=== PATIENT | female | born 1930 | race Caucasian/White ===

== ENCOUNTER 2016-12-17 12:44 | Inpatient (IN) ==
[2016-12-17] MEDS ORDERED: ONDANSETRON 4 MG/2 ML VIAL IV ONE ×2 (12:51→18:25)
[2016-12-17] MEDS: HYDROmorphone 2 MG/ML SYRINGE IV PRN ×2 (13:02→13:14)
--- NOTE | 2016-12-17 13:14 | Emergency Department Note ---
Lower Extremity Injury HPI - General Source: patient, family Mode of arrival: wheelchair Limitations: no limitations <Dora Puentes - Last Filed: 12/17/16 19:32> - General Source: patient Mode of arrival: ambulatory Limitations: no limitations <Jamin Novoa - Last Filed: 12/18/16 08:04> - General Chief Complaint: Extremity Injury, Lower Stated Complaint: Fall on right hip Time Seen by Provider: 12/17/16 12:58 - History of Present Illness HPI Narrative: 86-year-old female presents with fall onto the right hip. She was going downstairs at around 1030 this morning and missed the last step and fell onto her right hip. She has a lot of pain in the groin and muscles. She was unable to walk on it. Her main complaint is a muscle spasm and that comes and goes. She states her pain is 10 out of 10 when the spasms come. She has never had a fracture before. She denies hitting her head or shortness of breath. She has hypertension and a history of bone marrow cancer that is in remission. She takes 1 aspirin 325 daily. She denies any other complaints. She denies shortness of breath or chest pain. Known heart murmur since she was young ( Dora Puentes) - Related Data Home Medications Medication Instructions Recorded Confirmed aspirin 325 mg tablet 325 mg PO QDAY tab 02/28/15 12/17/16 hydroxyurea 500 mg capsule 500 mg PO QDAY cap 02/28/15 12/17/16 Previous Rx's Medication Instructions Recorded amlodipine 10 mg tablet 10 mg PO QDAY #90 tab 10/27/16 indapamide 2.5 mg tablet 2.5 mg PO QAM #90 tab 10/27/16 lisinopril 10 mg tablet 10 mg PO QDAY #90 tab 10/27/16 pravastatin 80 mg tablet 80 mg PO QHS #90 tab 10/27/16 Allergies Allergy/AdvReac Type Severity Reaction Status Date / Time No Known Drug Allergies Allergy Verified 10/27/16 10:47 Review of Systems All systems ED: reviewed and negative except as stated. <Dora Puentes - Last Filed: 12/17/16 19:32> Past Medical History - Past Medical History Medical history: Reports: cancer (bone marrow), coronary artery disease, hypertension Surgical history ED: Reports: angioplasty/stent [facility] history: Reports: non-contributory Family history: Reports: non-contributory - Social History smoking status: Former smoker <Dora Puentes - Last Filed: 12/17/16 19:32> - Past Medical History [facility] [place] Narrative: Medical History (Last Updated 11/05/16 @ 14:28 by [employer]) Chronic kidney disease, stage III (moderate) (Chronic) Abnormal finding in urine (Chronic) Polycythemia vera (Chronic) Hyperlipidemia (Chronic) Hypertension, essential (Chronic) Hyperkalemia (Resolved) Past Surgical History (Last Updated 11/05/16 @ 14:28 by [employer] [facility]) History of intravascular stent placement (Chronic) History of intravascular stent placement (Chronic) Family History Mother Arthritis Essential hypertension (Jamin Novoa) Physical Exam - General Limitations: no limitations General appearance: alert, in no apparent distress - Head Head exam: atraumatic, normal inspection - Eye Eye exam: Present: normal appearance, PERRL, EOMI. Absent: conjunctival injection - Neck Neck exam: Present: normal inspection, full ROM. Absent: tenderness, lymphadenopathy - Chest Chest inspection: Present: normal inspection, symmetric chest wall rise - Respiratory Respiratory exam: Present: normal lung sounds bilaterally - Cardiovascular Cardiovascular exam: Present: regular rate, systolic murmur - Abdominal Exam Abdominal exam: Present: soft, normal bowel sounds. Absent: tenderness - Expanded Lower Extremity Exam Hip/Pelvis exam: Present: tenderness (medial hip, groin), swelling (medial), external rotation, shortening, pelvis stable. Absent: full ROM, abrasion, laceration, ecchymosis, deformity, dislocation, erythema Knee exam: Present: normal inspection, full ROM. Absent: tenderness Lower leg exam: Present: normal inspection, full ROM. Absent: tenderness Ankle exam: Present: normal inspection, full ROM. Absent: tenderness Foot/toe exam: Present: normal inspection, full ROM. Absent: tenderness Neurovascular/Tendon exam: Present: normal capillary refill. Absent: pulse deficit - Neurological Exam Neurological exam: Present: alert, oriented X3, CN II-XII intact - Psychiatric Psychiatric exam: Present: normal affect, normal mood - Skin Skin exam: Present: warm, dry, intact <Dora Puentes - Last Filed: 12/17/16 19:32> - General Limitations: no limitations <Jamin Novoa - Last Filed: 12/18/16 08:04> Course <Dora Puentes - Last Filed: 12/17/16 19:32> <Jamin Novoa - Last Filed: 12/18/16 08:04> Course Narrative: She was taken to surgery by Dr. Calvert (Dora Puentes) Vital Signs Temperature 97.7 F 12/17/16 12:46 Pulse Rate 53 L 12/17/16 12:46 Respiratory Rate 20 12/17/16 12:46 Blood Pressure 162/76 12/17/16 12:46 Pulse Oximetry (%) 97 12/17/16 12:46 Temperature 98.6 F 12/18/16 06:37 Pulse Rate 56 L 12/18/16 06:37 Respiratory Rate 18 12/18/16 06:37 Blood Pressure 145/63 12/18/16 06:37 Pulse Oximetry (%) 94 12/18/16 07:27 Extremity Injury, Lower - Lab Data Result diagrams: 12/17/16 13:56 12/17/16 13:56 - Radiology Data Radiology results reviewed: Yes I reviewed the patient's radiology results. <Dora Puentes - Last Filed: 12/17/16 19:32> - Lab Data Result diagrams: 12/17/16 13:56 12/17/16 13:56 <Jamin Novoa - Last Filed: 12/18/16 08:04> - [facility] Narrative Medical decision making narrative: I have reviewed this case with the mid-level and agree that the patient has an intertrochanteric hip fracture. She has no other injuries and will be admitted to the hospital for surgery with Dr. Calvert. (Jamin Novoa) - Lab Data Lab Results 12/17/16 12/17/16 12/17/16 Range/Units 13:56 13:56 13:56 WBC 17.1 H (4.5-11.0) K/mcL RBC 3.88 L (4.00-5.20) M/mcL Hgb 14.4 (12.0-15.0) g/dL Hct 43.1 (36.0-48.0) % MCV 111.3 H (80.0-100.0) fL MCH 37.1 H (26.0-34.0) pg MCHC 33.4 (31.0-36.0) g/dL RDW 15.4 H (11.5-14.5) % Plt Count 559 H (140-440) K/mcL MPV 8.5 (7.4-10.4) fL Total Counted 100 Seg Neutrophils % 94 H (38-78) % Band Neutrophils % Not Reportable Monocytes % (Manual) 6 (1-12) % Platelet Estimate Increased (NORMAL) RBC Morphology Abnorm A (NORMAL) Macrocytosis 3+ A (NONE SEEN) PT 13.8 (11.9-14.5) sec INR 1.0 (0.9-1.1) VBG Lactic Acid (0.5-2.2) mmol/L Sodium 138 (133-145) mmol/L Potassium 3.9 (3.3-5.1) mmol/L Chloride 99 (96-108) mmol/L Carbon Dioxide 24 (22-30) mmol/L Anion Gap 15.0 (8-16) BUN 25 H (8-23) mg/dl Creatinine 1.0 (0.6-1.1) mg/dl GFR Calculation 52 Glucose 140 H (70-105) mg/dL Calcium 9.4 (8.6-10.4) mg/dl Total Bilirubin 0.8 (0.0-1.0) mg/dL AST 18 (0-37) U/l ALT 12 (0-40) U/l Alkaline Phosphatase 77 (39-117) U/L Total Protein 7.5 (5.9-8.4) gm/dL Albumin 4.3 (3.2-5.2) gm/dL Globulin 3.2 (2.2-3.7) gm/dL Albumin/Globulin Ratio 1.3 (1.0-2.3) Urine Color Urine Appearance Urine pH (5.0-9.0) Ur Specific Emily (1.000-1.035) Urine Protein (NEG) mg/dL Urine Glucose (UA) (NEG) mg/dL Urine Ketones (NEG) mg/dL Urine Occult Blood (<0.03) mg/dL Urine Nitrate (NEG) Urine Bilirubin (NEG) mg/dL Urine Urobilinogen (NEG) mg/dL Ur Leukocyte Esterase (NEG) /uL Urine RBC (0-1) /hpf Urine WBC (0-4) /hpf Ur Squamous Epith Cells (0-4) /hpf Amorphous Crystals (0) /hpf Urine Bacteria (0) /hpf Hyaline Casts (0-2) /lpf Urine Mucus (0) /hpf Ur Culture Indicated? 12/17/16 12/17/16 Range/Units 14:53 15:07 WBC (4.5-11.0) K/mcL RBC (4.00-5.20) M/mcL Hgb (12.0-15.0) g/dL Hct (36.0-48.0) % MCV (80.0-100.0) fL MCH (26.0-34.0) pg MCHC (31.0-36.0) g/dL RDW (11.5-14.5) % Plt Count (140-440) K/mcL MPV (7.4-10.4) fL Total Counted Seg Neutrophils % (38-78) % Band Neutrophils % Monocytes % (Manual) (1-12) % Platelet Estimate (NORMAL) RBC Morphology (NORMAL) Macrocytosis (NONE SEEN) PT (11.9-14.5) sec INR (0.9-1.1) VBG Lactic Acid 1.1 (0.5-2.2) mmol/L Sodium (133-145) mmol/L Potassium (3.3-5.1) mmol/L Chloride (96-108) mmol/L Carbon Dioxide (22-30) mmol/L Anion Gap (8-16) BUN (8-23) mg/dl Creatinine (0.6-1.1) mg/dl GFR Calculation Glucose (70-105) mg/dL Calcium (8.6-10.4) mg/dl Total Bilirubin (0.0-1.0) mg/dL AST (0-37) U/l ALT (0-40) U/l Alkaline Phosphatase (39-117) U/L Total Protein (5.9-8.4) gm/dL Albumin (3.2-5.2) gm/dL Globulin (2.2-3.7) gm/dL Albumin/Globulin Ratio (1.0-2.3) Urine Color Yellow Urine Appearance Clear Urine pH 5.0 (5.0-9.0) Ur Specific Emily 1.018 (1.000-1.035) Urine Protein Neg (NEG) mg/dL Urine Glucose (UA) Negative (NEG) mg/dL Urine Ketones Neg (NEG) mg/dL Urine Occult Blood Neg (<0.03) mg/dL Urine Nitrate Neg (NEG) Urine Bilirubin Neg (NEG) mg/dL Urine Urobilinogen Neg (NEG) mg/dL Ur Leukocyte Esterase Neg (NEG) /uL Urine RBC < 1 (0-1) /hpf Urine WBC < 1 (0-4) /hpf Ur Squamous Epith Cells 0 (0-4) /hpf Amorphous Crystals Few A (0) /hpf Urine Bacteria 0 (0) /hpf Hyaline Casts 4 H (0-2) /lpf Urine Mucus Few (0) /hpf Ur Culture Indicated? No - Radiology Data intertrochanteric hip fracture (Dora Puentes) Disposition <Dora Puentes - Last Filed: 12/17/16 19:32> <Jamin Novoa - Last Filed: 12/18/16 08:04> Clinical Impression: Fracture of hip Disposition: Xfer As Inpt ([facility]) Condition: Fair
[2016-12-17] MEDS ORDERED: fentaNYL 100 MCG/2 ML VIAL IV ONE ×4 (13:35→18:25)
[2016-12-17] MEDS ORDERED: METHOCARBAMOL 1,000 MG/10 ML VIAL IV ONE ×2 (13:36→15:44)
--- NOTE | 2016-12-17 13:50 | XRay Report ---
CLINICAL INFORMATION: Trauma COMPARISON: 04/20/2008 FINDINGS: The heart is minimally enlarged. There is moderate enlargement of the central pulmonary artery suggesting pulmonary hypertension. COPD changes noted. No infiltrates - lungs are otherwise clear. No effusions IMPRESSION: COPD changes with enlarged central pulmonary arteries suggesting pulmonary hypertension. No acute disease Interpreted and Authenticated by: Manohar Willett 12/17/16
--- NOTE | 2016-12-17 13:52 | XRay Report ---
CLINICAL INFORMATION: Trauma COMPARISON: None. FINDINGS: Mildly comminuted obliquely oriented intertrochanteric fracture right hip is appreciated. Lesser trochanter fragment displaced 1 cm medially. Mild osteoporosis noted Both SI and hip joints are normal in width and alignment. Soft tissues swelling over the fracture site is seen as expected IMPRESSION: Minimally displaced intertrochanteric fracture - right hip Interpreted and Authenticated by: Manohar Willett 12/17/16
[2016-12-17 14:22] LABS: Mean Cell Volume 111.3 fL (80.0-100.0); Mean Corpuscular HGB Conc 33.4 g/dL (31.0-36.0); Mean Corpuscular Hemoglobin 37.1 pg (26.0-34.0); Platelet Count 559 K/mcL (140-440); RBC 3.88 M/mcL (4.00-5.20); Red Cell Distribution Width 15.4 % (11.5-14.5)
[2016-12-17 14:24] LABS: ALT/SGPT 12 U/l (0-40); Albumin 4.3 gm/dL (3.2-5.2); Albumin/Globulin Ratio 1.3 (1.0-2.3); Alkaline Phosphatase 77 U/L (39-117); Blood Urea Nitrogen 25 mg/dl (8-23)
[2016-12-17 14:54] LABS: Macrocytosis 3+ (NONE SEEN); Monocytes % (Manual) 6 % (1-12); Platelet Estimate INCREASED (NORMAL); RBC Morphology ABNORM (NORMAL); Segmented Neutrophils % 94 % (38-78)
--- NOTE | 2016-12-17 15:26 | Internal Med History&Physical ---
Medical - H&P: HPI Patient information: Note initiated : 12/17/16 at 3:23 pm Patient: Roseann Adamson 86 y/o F admitted on for Fall On Rt Hip. History of present illness: Ms. Adamson is a 86 year old female with a history of polycythemia vera, peripheral vascular disease, hypertension, who was in her normal state of health until this morning, when she says she put her foot down wrong and just lost her balance and fell. She presented to the emergency room, where a right hip fracture was diagnosed. Dr. Baer asked that I admit her to my service, and he will plan on fixing her hip this afternoon. The patient says that otherwise, she was feeling fine. 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 Hyperkalemia (Resolved) due to TOM A peripheral vascular disease, status post stenting carotid artery, some ? chest artery. Surgical History History of intravascular stent placement (Chronic) 2007 Neck History of intravascular stent placement (Chronic) 2013 Chest Medication List amlodipine 10 mg PO QDAY aspirin 325 mg PO QDAY hydroxyurea 500 mg PO QDAY indapamide 2.5 mg PO QAM lisinopril 10 mg PO QDAY lisinopril 10 mg PO QDAY pravastatin 80 mg PO QHS Allergies/Adverse Reactions No Known Drug Allergies Allergy Family History Arthritis Mother: at 85, essential hypertension. Father may have of pneumonia around age 79. One brother had alcoholism. Social History smoking status: Former smoker quit date: 05/07/07 pack-years: 20. She says she smoked at least 40 years. alcohol intake frequency: holiday/special occasion only. substance use type: does not use She lives with her son. Medical - H&P: Meds Home Medications Medication Instructions Recorded Confirmed Type aspirin 325 mg tablet 325 mg PO QDAY tab 02/28/15 12/17/16 History hydroxyurea 500 mg capsule 500 mg PO QDAY cap 02/28/15 12/17/16 History amlodipine 10 mg tablet 10 mg PO QDAY #90 tab 10/27/16 12/17/16 Rx indapamide 2.5 mg tablet 2.5 mg PO QAM #90 tab 10/27/16 12/17/16 Rx lisinopril 10 mg tablet 10 mg PO QDAY #90 tab 10/27/16 12/17/16 Rx pravastatin 80 mg tablet 80 mg PO QHS #90 tab 10/27/16 12/17/16 Rx Allergies Allergy/AdvReac Type Severity Reaction Status Date / Time No Known Drug Allergies Allergy Verified 10/27/16 10:47 Medical - H&P: Exam - Constitutional Vitals: Temp Pulse Resp BP Pulse Ox 97.7 F 66 20 140/60 100 12/17/16 12:46 12/17/16 15:20 12/17/16 12:46 12/17/16 15:01 12/17/16 15:20 On exam, she is a well-developed well-nourished female, who is rather hard of hearing, and a little bit irritable. Head: Normocephalic atraumatic. Eyes: PERRLA, EOMI, anicteric. Ears: TMs and canals are clear. Pharynx: Is clear. She has full upper and lower plates. Neck: Is supple. She has a scar noted over the right carotid artery. She has bilateral carotid bruits. Otherwise, no lymphadenopathy, thyromegaly, JVD is appreciated. Cardiac exam: Is regular rate and rhythm with normal S1 and S2. There is a 2/6 systolic murmur heard at the left lower sternal border. No rubs or gallops are noted. Lungs: Clear to auscultation, with her lying supine. No rales, rhonchi, wheezes are appreciated. Abdomen: Is soft and nontender. There is an audible abdominal bruit over the mid abdominal aorta. Otherwise no masses, tenderness, guarding or rebound. Bowel sounds are active. Extremities: Left lower extremity appears normal, without cyanosis, clubbing, edema. Right lower extremity is held in external rotation. Patient is experiencing fairly severe spasms about the hip during our exam. She is able to move her feet well. Pulses are intact in both feet. Neurologic exam: Is grossly nonfocal. Medical - H&P: Reslt - Labs CBC & Chem 7: 12/17/16 13:56 12/17/16 13:56 Labs: Short CBC 12/17/16 Range/Units 13:56 WBC 17.1 H (4.5-11.0) K/mcL Hgb 14.4 (12.0-15.0) g/dL Hct 43.1 (36.0-48.0) % Plt Count 559 H (140-440) K/mcL BMP 12/17/16 13:56 Sodium 138 Potassium 3.9 Chloride 99 Carbon Dioxide 24 BUN 25 H Creatinine 1.0 Glucose 140 H Calcium 9.4 Liver Function 12/17/16 Range/Units 13:56 Total Bilirubin 0.8 (0.0-1.0) mg/dL AST 18 (0-37) U/l ALT 12 (0-40) U/l Alkaline Phosphatase 77 (39-117) U/L Albumin 4.3 (3.2-5.2) gm/dL December 17: EKG: Normal sent sinus rhythm at about 75. No ischemic changes. Chest x-ray: Enlarged pulmonary arteries, suggesting pulmonary hypertension. COPD changes noted no infiltrates. Right hip x-ray: Minimally displaced intertrochanteric fracture of the right hip. Osteoporosis. Medical - H&P: A/P (1) COPD (chronic obstructive pulmonary disease) Current visit: Yes Status: Chronic (2) Fracture of hip Current visit: Yes Status: Acute (3) 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 Current visit: No Status: Chronic (4) Hypertension, essential Current visit: No Status: Chronic - Narrative A/P Narrative: #1. Orthopedic. Patient presents after a fall, with a right hip fracture. Dr. Calvert to consult, for probable operative repair. Patient is at moderately increased perioperative risk, regarding her age. Her polycythemia may increase her risk of blood clots. Also, she apparently has fairly diffuse vascular disease, with stents in the carotid arteries and some artery in her chest, unknown site. -DVT prophylaxis. -IV pain meds and anti-emetics and bowel meds. -Dyer catheter. -PT and OT evaluations -Supplement calcium and vitamin D. Consider bisphosphonate at some point. Consider DEXA scan. Her son believes she has osteoporosis, but the patient does not. However, it does sound like she was probably treated for osteoporosis many years ago. 2. Hematologic -History of polycythemia vera. Continue hydroxyurea. Follow blood counts. It is at increased risk for both bleeding and clots. Start subcu heparin postop. 3. CODE STATUS: Full code, per the son. They both state she does have a living well. 4. DVT prophylaxis: Start subcu heparin tomorrow. Review preferred DVT prophylaxis regimen with Dr. Calvert. 5. Pulmonary. Chest x-ray suggestive of COPD. Use albuterol nebs as needed. Chest x-ray is also suggestive of pulmonary artery hypertension, although patient appears asymptomatic. 6. Infectious disease. She does present with leukocytosis with left shift. It is unclear if this is a stress reaction. -Blood and urine cultures are ordered. I assume she will receive perioperative antibiotics with [facility]. #7. Vascular. Patient does have vascular disease. She takes a full-strength aspirin at home. We should add Lovenox here I would think, postop.. Continue pravastatin also. 8. Renal. -Her chart reports history of CKD 3, but the patient also denies this. Next 9. Hyperlipidemia. Continue pravastatin. Next 10. Hypertension. Continue amlodipine, lisinopril, indapamide, aspirin postop. This visit took approximately 60 minutes, to review her old records, review her case with the ER MD, interview and examine her, review plan of care with the patient and her son, and write orders.
[2016-12-17 15:40] LABS: Appearance,Urine CLEAR; Bacteria,Urine 0 /hpf (0); Bilirubin,Urine NEG (NEG); Color,Urine YELLOW; Glucose,Urine (UA) NEGATIVE (NEG); Leukocyte Esterase,Urine NEG /uL (NEG); Mucus,Urine FEW /hpf (0); Nitrate,Urine NEG (NEG); Protein,Urine NEG (NEG); Specific Gravity,Urine 1.018 (1.000-1.035); Urine Amorphous Crystals FEW /hpf (0); Urine Blood NEG mg/dL (<0.03); Urine Hyaline Cast 4 /lpf (0-2); Urine RBC < 1 /hpf (0-1); Urine Squamous Epithelial Cell 0 /hpf (0-4); Urine WBC < 1 /hpf (0-4); Urobilinogen,Urine NEG (NEG)
[2016-12-17] MEDS ORDERED: SENNOSIDES 1 TABLET PO PRN (16:41)
[2016-12-17] MEDS ORDERED: ACETAMINOPHEN 325 MG TABLET PO PRN (16:41)
[2016-12-17] MEDS ORDERED: MAGNESIUM HYDROXIDE 30 ML ORAL.SUSP PO PRN ×2 (16:41→19:34)
[2016-12-17] MEDS ORDERED: ONDANSETRON 4 MG/2 ML VIAL IV PRN ×3 (16:41→19:34)
[2016-12-17] MEDS: POTASSIUM CHLORIDE 20 MEQ in 0.45 % SODIUM CHLORIDE 1,000 ML IV SCH (16:59)
--- NOTE | 2016-12-17 17:16 | Orthopedic History & Physical ---
History of Present Illness Patient information: Note initiated : 12/17/16 at 5:15 pm Service Date, if different from initiated Date: [] Patient: Roseann Adamson a 86 y/o F admitted on 12/17/16 for Fall On Rt Hip. Chief Complaint: [] Chief complaint: Right hip pain HPI: Ms. Adamson is a 86 year old Female complaining of right hip pain after a fall. She presented to the ED where she was discovered to have an intertrochanteric hip fracture of the right hip. She denies any LOC, chest pain, headache, confusion, or any other acute symptoms. Review of Systems Constitutional: as per HPI Nose, mouth and throat: as per HPI Cardiovascular: as per HPI Respiratory: as per HPI Gastrointestinal: as per HPI Genitourinary: as per HPI Menstruation: as per HPI Musculoskeletal: as per HPI Integumentary: as per HPI Neurological: as per HPI Psychiatric: as per HPI Endocrine: as per HPI Hematologic/Lymphatic: as per HPI Allergic/Immunologic: as per HPI Medications and Allergies Home Medications Medication Instructions Recorded Confirmed Type aspirin 325 mg tablet 325 mg PO QDAY tab 02/28/15 12/17/16 History hydroxyurea 500 mg capsule 500 mg PO QDAY cap 02/28/15 12/17/16 History amlodipine 10 mg tablet 10 mg PO QDAY #90 tab 10/27/16 12/17/16 Rx indapamide 2.5 mg tablet 2.5 mg PO QAM #90 tab 10/27/16 12/17/16 Rx lisinopril 10 mg tablet 10 mg PO QDAY #90 tab 10/27/16 12/17/16 Rx pravastatin 80 mg tablet 80 mg PO QHS #90 tab 10/27/16 12/17/16 Rx Allergies Allergy/AdvReac Type Severity Reaction Status Date / Time No Known Drug Allergies Allergy Verified 10/27/16 10:47 Physical Examination - Hip right Gait: other (unable to walk secondary to pain) Tenderness with palpation: other (diffuse tenderness throughout the hip. ) Pain with motion: other (pain with all motions of her hip) Crepitus with motion: Yes - Fracture hip Appearance: swelling Compartments: soft Distal extremity neurovascularly intact: Yes Proximal joint involvement: No Distal joint involvement: No Other injury: muscle injury: no, tendon injury: no, ligament injury: no, vascular injury: no, nerve injury: no Results - Labs Result Diagrams: 12/17/16 13:56 12/17/16 13:56 Labs: All other labs normal. Assessment and Plan (1) Intertrochanteric fracture of right hip Plan will be for an open reduction and internal fixation of right hip fracture with a gamma nail. I discussed the surgery, risks, and outcomes with the patient and her family and they understand and would like to proceed with surgery. Patient will be admitted after surgery for pain control and PT and will be placed on lovenox for DVT prophylaxis secondary to her polycythemia vera. Discharge likely in next 2 days to home or SNF. Status: Acute
[2016-12-17] MEDS ORDERED: ALBUTEROL SULFATE 2.5 MG/3 ML NEBULIZER NEB PRN (17:36)
[2016-12-17] MEDS ORDERED: ceFAZolin 1 GM VIAL IV SCH (18:00)
[2016-12-17] MEDS ORDERED: LIDOCAINE HCL/PF 100 MG/5 ML SYRINGE IV ONE (18:25)
[2016-12-17] MEDS ORDERED: DEXAMETHASONE 10 MG/ML VIAL IV ONE (18:25)
[2016-12-17] MEDS ORDERED: PROPOFOL 200 MG/20 ML VIAL IV ONE (18:25)
[2016-12-17] MEDS ORDERED: METOPROLOL TARTRATE 5 MG/5 ML VIAL IV PRN (18:58)
[2016-12-17] MEDS ORDERED: ATROPINE SULFATE 0.4 MG/ML VIAL IV PRN (18:58)
[2016-12-17] MEDS ORDERED: NALOXONE HCL 0.4 MG/ML VIAL IV PRN ×2 (18:58→19:34)
[2016-12-17] MEDS ORDERED: HYDROmorphone 2 MG/ML SYRINGE IV PRN (18:58)
[2016-12-17] MEDS ORDERED: BENZOCAINE/MENTHOL 1 LOZENGE PO PRN ×2 (18:58→19:34)
[2016-12-17] MEDS ORDERED: MEPERIDINE 25 MG/ML SYRINGE IV PRN (18:58)
[2016-12-17] MEDS ORDERED: ePHEDrine 50 MG/ML AMPUL IV PRN (18:58)
[2016-12-17] MEDS ORDERED: METHOCARBAMOL 1,000 MG/10 ML VIAL IV PRN ×2 (18:58→19:34)
[2016-12-17] MEDS ORDERED: FLUMAZENIL 0.1 MG/ML ML IV PRN (18:58)
[2016-12-17] MEDS ORDERED: PROMETHAZINE 25 MG/ML VIAL IV PRN (18:58)
[2016-12-17] MEDS ORDERED: IPRATROPIUM/ALBUTEROL 3 ML AMPUL.NEB NEB PRN (18:58)
[2016-12-17] MEDS ORDERED: fentaNYL 100 MCG/2 ML VIAL IV PRN (18:58)
[2016-12-17] MEDS ORDERED: diphenhydrAMINE 50 MG/ML VIAL IV PRN (18:58)
[2016-12-17] MEDS ORDERED: LACTATED RINGERS 1,000 ML IV SCH (19:00)
[2016-12-17] MEDS ORDERED: ONDANSETRON ODT 4 MG TABLET SL PRN (19:34)
[2016-12-17] MEDS ORDERED: POLYETHYLENE GLYCOL 3350 17 GM PACKET PO PRN (19:34)
[2016-12-17] MEDS ORDERED: HYDROcodone/APAP 5/325MG TABLET PO PRN (19:34)
[2016-12-17] MEDS ORDERED: BISACODYL 10 MG SUPP.RECT PR PRN (19:34)
[2016-12-17] MEDS ORDERED: FLEETS ADULT ENEMA PR PRN (19:34)
--- NOTE | 2016-12-17 19:34 | Brief Operative Note ---
Date of procedure: 12/17/16 Pre-op diagnosis: right hip intertrochanteric fracture Post-op diagnosis: same Procedure: right hip gamma nail Grafts/Implants: Yes Anesthesia: GETA Complications: none Surgeon: Manohar Calvert Heliarc Welder: Xiang Nelson Estimated blood loss (cc): 50 Specimens Removed/Pathology: none sent Condition: stable Disposition: PACU
[2016-12-17] MEDS ORDERED: MEPERIDINE 50 MG/ML SYRINGE IM PRN (19:42)
[2016-12-17] MEDS ORDERED: MEPERIDINE 50 MG/ML SYRINGE ONE (19:45)
[2016-12-17] MEDS: 0.9 % SODIUM CHLORIDE 1,000 ML IV SCH (20:03)
[2016-12-17] MEDS ORDERED: METHOCARBAMOL 1,000 MG/10 ML VIAL ONE (20:28)
[2016-12-17] MEDS ORDERED: SIMVASTATIN 20 MG TABLET PO SCH (21:00)
[2016-12-17] MEDS ORDERED: SENNOSIDES 1 TABLET PO SCH (21:00)
[2016-12-17] MEDS: CALCIUM CARBONATE 500 MG TAB.CHEW CHEWED SCH (23:27)
[2016-12-17] MEDS: 0.9 % SODIUM CHLORIDE 10 ML SYRINGE IV SCH (23:28)
[2016-12-17] MEDS: DOCUSATE SODIUM 100 MG CAPSULE PO SCH (23:29)
[2016-12-18] MEDS: DOCUSATE SODIUM 100 MG CAPSULE PO SCH ×4 (01:40→20:31)
[2016-12-18] MEDS ORDERED: ceFAZolin 1 GM VIAL ONE (02:38)
[2016-12-18] MEDS: ceFAZolin 1 GM VIAL IV SCH ×2 (02:40→18:34)
[2016-12-18] MEDS ORDERED: METHOCARBAMOL 1,000 MG/10 ML VIAL ONE (03:53)
[2016-12-18] MEDS: POTASSIUM CHLORIDE 20 MEQ in 0.45 % SODIUM CHLORIDE 1,000 ML IV SCH (04:12)
[2016-12-18] MEDS: 0.9 % SODIUM CHLORIDE 10 ML SYRINGE IV SCH ×3 (05:31→20:32)
--- NOTE | 2016-12-18 06:31 | Orthopedic Progress Note ---
Subjective Patient information: Note initiated : 12/18/16 at 6:29 am Service Date, if different from initiated Date: [] Patient: Roseann Adamson 86 y/o F admitted on 12/17/16 for Fall On Rt Hip. Chief Complaint: [] Interval history: doing much better. still spasms Objective Vital signs: Vital Signs Temp Pulse Pulse Pulse Resp BP BP 12/18/16 03:25 98.0 F 75 20 164/56 12/17/16 23:34 98.0 F 60 16 156/70 12/17/16 22:37 61 16 144/67 12/17/16 22:08 97.9 F 60 18 117/56 12/17/16 21:38 63 20 117/66 12/17/16 21:22 61 18 148/73 12/17/16 21:07 65 18 145/72 12/17/16 20:52 62 16 125/69 12/17/16 20:37 97.8 F 66 18 122/56 12/17/16 20:21 97.8 F 71 14 152/68 12/17/16 20:05 97.9 F 73 14 140/52 12/17/16 20:00 12/17/16 19:50 65 17 182/65 12/17/16 19:36 99.2 F H 75 17 180/78 12/17/16 16:00 97.7 F 75 20 164/90 Pulse Ox 12/18/16 03:25 99 12/17/16 23:34 97 12/17/16 22:37 97 12/17/16 22:08 95 12/17/16 21:38 95 12/17/16 21:22 99 12/17/16 21:07 98 12/17/16 20:52 98 12/17/16 20:37 91 12/17/16 20:21 98 12/17/16 20:05 98 12/17/16 20:00 98 12/17/16 19:50 98 12/17/16 19:36 100 12/17/16 16:00 100 Intake and Output 12/17/16 12/18/16 12/18/16 21:59 05:59 13:59 Intake Total 1700 / 1700 400 / 400 Output Total 1575 / 1575 500 / 500 Balance 125 / 125 -100 / -100 Intake: Oral 800 / 800 400 / 400 IV - Manual Only 900 / 900 Output: Urine Catheter Amount 475 / 475 500 / 500 Void Amount 1000 / 1000 Estimated Blood Loss 100 / 100 Other: Weight 116 lb 8 oz Intake & Output: Intake & Output 12/17/16 12/18/16 12/18/16 21:59 05:59 13:59 Intake Total 1700 / 1700 400 / 400 Output Total 1575 / 1575 500 / 500 Balance 125 / 125 -100 / -100 Weight 116 lb 8 oz Intake: Oral 800 / 800 400 / 400 IV - Manual Only 900 / 900 Output: Urine Catheter Amount 475 / 475 500 / 500 Void Amount 1000 / 1000 Estimated Blood Loss 100 / 100 Incision: Yes healing Incision clean and dry: Yes Dressing: Yes clean, Yes dry, Yes intact Weight bearing status: full Neurological exam IM: Yes abnormal gait, Yes alert, Yes oriented X3, Yes motor sensory intact, Yes neurovascular intact Extremities exam IM: Yes Foot pink and warm, Yes neurovascular intact - Labs CBC & BMP: 12/17/16 13:56 12/17/16 13:56 Labs: Orthopedic Labs 12/18/16 06:15 PT Pending INR Pending 12/18/16 06:15 Hgb Pending Hct Pending Assessment and Plan (1) Intertrochanteric fracture of right hip pod 1 s/p gamma nail right hip wbat pt pain control dvt prophylaxis per medicine d/c planning Status: Acute
[2016-12-18] MEDS: 0.9 % SODIUM CHLORIDE 1,000 ML IV SCH (07:27)
--- NOTE | 2016-12-18 07:47 | XRay Report ---
CLINICAL INFORMATION: Subtrochanteric fracture - ORIF COMPARISON: Pelvic films 12/17/2016 - pre-op 1319 hours FINDINGS: IM belkis and screw transfix comminuted subtrochanteric fracture. Alignment is near-anatomic with 2 cm displacement of the lesser trochanteric fragment medially. Both hip joints are normal with alignment arthritic change. Mild degeneration in both SI joints. IMPRESSION: ORIF subtrochanteric fracture near-anatomic alignment Interpreted and Authenticated by: Manohar Willett 12/18/16
[2016-12-18 08:39] LABS: ALT/SGPT 11 U/l (0-40); Albumin 3.6 gm/dL (3.2-5.2); Albumin/Globulin Ratio 1.7 (1.0-2.3); Alkaline Phosphatase 56 U/L (39-117); Bilirubin,Direct < 0.2 mg/dL (0.0-0.3); Blood Urea Nitrogen 17 mg/dl (8-23); Gamma Glutamyl Transpeptidase 5 U/L (5-36); Uric Acid 4.8 mg/dL (2.5-8.0)
[2016-12-18 08:42] LABS: Basophils # (Auto) 0 K/mcL (0.0-0.3); Basophils % (Auto) 0 % (0.0-2.0); Eosinophils # (Auto) 0 K/mcL (0.0-0.7); Eosinophils % (Auto) 0.1 % (0.0-7.0); Granulocytes % (Auto) 94.9 % (38.0-78.0); Lymphocytes # (Auto) 0.2 K/mcL (1.5-4.8); Lymphocytes % (Auto) 2.2 % (15.5-49.0); Mean Cell Volume 110.7 fL (80.0-100.0); Mean Corpuscular HGB Conc 34.4 g/dL (31.0-36.0); Mean Corpuscular Hemoglobin 38.1 pg (26.0-34.0); Monocytes # (Auto) 0.3 K/mcL (0.1-0.9); Monocytes % (Auto) 2.8 % (1.0-12.0); Platelet Count 341 K/mcL (140-440); RBC 2.82 M/mcL (4.00-5.20); Red Cell Distribution Width 14.7 % (11.5-14.5)
[2016-12-18] MEDS ORDERED: ENOXAPARIN 40 MG/0.4 ML SYRINGE SQ SCH (09:00)
[2016-12-18] MEDS ORDERED: ASPIRIN 81 MG TAB.CHEW PO SCH (09:00)
[2016-12-18] MEDS ORDERED: ASPIRIN 325 MG ENTERIC COATED TABLET PO SCH (09:00)
[2016-12-18] MEDS ORDERED: amLODIPine 10 MG TABLET PO SCH (09:00)
[2016-12-18] MEDS ORDERED: LISINOPRIL 10 MG TABLET PO SCH ×2 (09:00→21:00)
[2016-12-18] MEDS ORDERED: INDAPAMIDE 2.5 MG TABLET PO SCH (09:00)
[2016-12-18] MEDS ORDERED: VITAMIN D3 1,000 UNIT TABLET PO SCH (09:00)
[2016-12-18] MEDS: CALCIUM CARBONATE 500 MG TAB.CHEW CHEWED SCH ×2 (10:47→20:32)
--- NOTE | 2016-12-18 11:30 | Internal Med Progress Note ---
Medical - PN: Subj Patient information: Note initiated : 12/18/16 at 11:30 am Patient: Roseann Adamson 86 y/o F admitted on 12/17/16 for Fall On Rt Hip. Interval history: December 17:History of present illness: Ms. Adamson is a 86 year old female with a history of polycythemia vera, peripheral vascular disease, hypertension, who was in her normal state of health until this morning, when she says she put her foot down wrong and just lost her balance and fell. She presented to the emergency room, where a right hip fracture was diagnosed. Dr. Baer asked that I admit her to my service, and he will plan on fixing her hip this afternoon. The patient says that otherwise, she was feeling fine. She denies any recent fever or chills, headaches or dizziness, new eye or ear symptoms, sore throat or cough, chest pain or palpitations, shortness of breath or wheezing, abdominal pain, nausea or vomiting December 18: Today, the patient feels like she is doing pretty well. She says she is not having hip pain, but is still having fairly severe muscle spasms around the hip. She was a little unsteady on her feet, due to muscle spasms. Otherwise, she denies fever or chills, headaches or dizziness, chest pain or shortness of breath, abdominal pain, nausea or vomiting, diarrhea or constipation. -white blood cell count was elevated on admission, but is back down to normal today. She did receive 2 or 3 doses of Ancef in the perioperative period. - Constitutional Vitals: Vital Signs Temp Pulse Resp BP Pulse Ox 96.3 F L 56 L 18 144/69 95 12/18/16 11:19 12/18/16 06:37 12/18/16 11:19 12/18/16 11:19 12/18/16 11:19 Period Temp Pulse Resp BP Sys/Cervantes Pulse Ox Last 24 Hr 96.3 F-99.2 F 56-75 14-20 117-182/52-90 91-100 Intake and Output 12/17/16 12/18/16 12/18/16 21:59 05:59 13:59 Intake Total 1700 / 1700 400 / 400 1750 / 1750 Output Total 1575 / 1575 500 / 500 Balance 125 / 125 -100 / -100 1750 / 1750 Weight 116 lb 8 oz Intake & Output: Intake & Output 12/17/16 12/18/16 12/18/16 21:59 05:59 13:59 Intake Total 1700 / 1700 400 / 400 1750 / 1750 Output Total 1575 / 1575 500 / 500 Balance 125 / 125 -100 / -100 1750 / 1750 Weight 116 lb 8 oz Intake: IV 1000 / 1000 Sodium Chloride 0.9% 1, 1000 / 1000 000 ml @ 100 mls/hr IV . Q10H [facility] Rx#:[id number] Oral 800 / 800 400 / 400 750 / 750 IV - Manual Only 900 / 900 Output: Urine Catheter Amount 475 / 475 500 / 500 Void Amount 1000 / 1000 Estimated Blood Loss 100 / 100 On exam, she is sitting up in a chair. She is fairly comfortable. Neck is supple without obvious lymphadenopathy or JVD. Cardiac exam shows regular rate and rhythm. Lungs are clear to auscultation. Abdomen is soft. Extremities show no significant edema. Right hip is bandaged. Neurologic exam is grossly nonfocal Medical - PN: Obj Da - Labs CBC & Chem 7: 12/18/16 06:15 12/18/16 06:15 Labs: Abnormal Lab Results 12/18/16 12/18/16 12/18/16 06:15 06:15 06:15 RBC 2.82 L Hgb 10.8 L Hct 31.2 L MCV 110.7 H MCH 38.1 H RDW 14.7 H Gran % 94.9 H Lymph % (Auto) 2.2 L Gran # 8.8 H Lymph # (Auto) 0.2 L PT 14.9 H Glucose 121 H Calcium 8.2 L Total Protein 5.7 L Globulin 2.1 L December 18: Blood cultures are negative so far. December 17: Urinalysis showed a few crystals, and hyaline casts, but was otherwise normal. White blood cell count 17,000, platelet count 559,000 EKG: Normal sent sinus rhythm at about 75. No ischemic changes. Chest x-ray: Enlarged pulmonary arteries, suggesting pulmonary hypertension. COPD changes noted no infiltrates. Right hip x-ray: Minimally displaced intertrochanteric fracture of the right hip. Osteoporosis. Meds: Medications Acetaminophen (Tylenol) 650 mg PO Q6HP PRN PRN Reason: PAIN/FEVER > 101 Hydrocodone Bitart/Acetaminophen ([place] 5/325mg) 0 tab PO Q4HP PRN PRN Reason: Pain Albuterol Sulfate (Ventolin) 2.5 mg NEB Q2HP PRN PRN Reason: Shortness Of Breath Amlodipine Besylate (Norvasc) 10 mg PO QDAY [facility] Last Admin: 12/18/16 10:54 Dose: 10 mg Aspirin (Aspirin) 81 mg PO DAILY [facility] Last Admin: 12/18/16 10:47 Dose: 81 mg Bisacodyl (Dulcolax) 10 mg OR Q2-3DAYS PRN PRN Reason: Constipation Calcium Carbonate/Glycine (Tums) 500 mg CHEWED BID [facility] Last Admin: 12/18/16 10:47 Dose: 500 mg Cefazolin Sodium (Ancef) 1 gm IV Q8H [facility] Stop: 12/18/16 03:46 Last Admin: 12/18/16 02:40 Dose: Not Given Docusate Sodium (Colace) 100 mg PO BID [facility] Last Admin: 12/18/16 10:47 Dose: 100 mg Docusate Sodium (Colace) 100 mg PO BID [facility] Last Admin: 12/18/16 11:06 Dose: Not Given Enoxaparin Sodium (Lovenox) 40 mg SQ DAILY [facility] Last Admin: 12/18/16 10:46 Dose: 40 mg Heparin Sodium (Porcine) (Heparin) 5,000 unit SQ Q12 [facility] Hydroxyurea (Hydrea) 500 mg PO DAILY@1400 [facility] Potassium Chloride 20 meq/ (Sodium Chloride) 1,010 mls @ 100 mls/hr IV .Q10H6M [facility] Last Admin: 12/18/16 04:12 Dose: Not Given Sodium Chloride (Sodium Chloride 0.9%) 1,000 mls @ 100 mls/hr IV .Q10H [facility] Last Admin: 12/18/16 07:27 Dose: 100 mls/hr Indapamide (Lozol) 2.5 mg PO DAILY [facility] Last Admin: 12/18/16 11:03 Dose: 2.5 mg Lisinopril (Zestril) 10 mg PO HS [facility] Magnesium Hydroxide (Milk Of Magnesia) 30 ml PO DAILYP PRN PRN Reason: Constipation Magnesium Hydroxide (Milk Of Magnesia) 30 ml PO BIDP PRN PRN Reason: Constipation Methocarbamol (Robaxin) 750 mg IV Q6HP PRN PRN Reason: Muscle Spasm Morphine Sulfate (Morphine) 2 mg IV Q1HP PRN PRN Reason: Pain Last Admin: 12/18/16 03:56 Dose: 2 mg Morphine Sulfate (Morphine) 0 mg IV Q1HP PRN PRN Reason: Pain Naloxone HCl (Narcan) 0.1 mg IV Q2MIN PRN PRN Reason: Opiate Reversal Ondansetron HCl (Zofran) 4 mg IV Q6HP PRN PRN Reason: Nausea And Vomiting Ondansetron HCl (Zofran) 4 mg IV Q4HP PRN PRN Reason: Nausea And Vomiting Ondansetron HCl (Zofran Odt) 4 mg SL Q4HP PRN PRN Reason: Nausea And Vomiting Polyethylene Glycol (Miralax) 17 gm PO DAILYP PRN PRN Reason: Constipation Senna (Senokot) 2 tab PO HS PRN PRN Reason: Constipation Senna (Senokot) 2 tab PO HS [facility] Last Admin: 12/18/16 01:40 Dose: Not Given Simvastatin (Zocor) 20 mg PO HS [facility] Last Admin: 12/17/16 23:28 Dose: 20 mg Sodium Biphosphate/Sodium Phosphate (Fleets Adult) 1 dose OR Q3-4DAYS PRN PRN Reason: Constipation Sodium Chloride (Saline Flush) 10 ml IV Q8 [facility] Last Admin: 12/18/16 05:31 Dose: Not Given Throat Lozenges (Cepacol) 1 lozenge PO PRN PRN PRN Reason: Sore Throat Vitamin D (Vitamin D3) 2,000 unit PO DAILY [facility] Last Admin: 12/18/16 10:49 Dose: 2,000 unit Medical - PN: A/P - Time Spent With Patient Total time spent is greater than 50% in coordination of care (as documented) at patient's floor/unit and/or counseling patient: 15 - 24 minutes (1) COPD (chronic obstructive pulmonary disease) Status: Chronic Current Visit: Yes (2) Fracture of hip Status: Acute Current Visit: Yes (3) 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 Status: Chronic Current Visit: No (4) Hypertension, essential Status: Chronic Current Visit: No - Narrative A/P Narrative: #1. Orthopedic. Patient presents after a fall, with a right hip fracture. She is status post ORIF with Dr. Calvert. . Her polycythemia may increase her risk of blood clots. Also, she apparently has fairly diffuse vascular disease, with stents in the carotid arteries and some artery in her chest, unknown site. -DVT prophylaxis--subcu heparin. Continue pain meds, bowel meds, antiemetics. . . -Dyer catheter. -PT and OT . -Supplement calcium and vitamin D. Consider bisphosphonate at some point. Consider DEXA scan. Her son believes she has osteoporosis, but the patient does not. However, it does sound like she was probably treated for osteoporosis many years ago. 2. Hematologic -History of polycythemia vera. Continue hydroxyurea. Follow blood counts. It is at increased risk for both bleeding and clots. Start subcu heparin postop. 3. CODE STATUS: Full code, per the son. They both state she does have a living well. 4. DVT prophylaxis: Start subcu heparin tomorrow. Review preferred DVT prophylaxis regimen with Dr. Calvert. I will try to reach Dr. Isha Yan tomorrow, of hematology, just to verify that this is the appropriate regimen, in the setting of her polycythemia vera.. 5. Pulmonary. Chest x-ray suggestive of COPD. Use albuterol nebs as needed. Chest x-ray is also suggestive of pulmonary artery hypertension, although patient appears asymptomatic. 6. Infectious disease. She does present with leukocytosis with left shift. Improved. -Blood and urine cultures are ordered. She did receive perioperative Ancef. #7. Vascular. Patient does have vascular disease. She takes a full-strength aspirin at home. We should add heparin here I would think, postop.. Continue pravastatin also. 8. Renal. -Her chart reports history of CKD 3, but the patient also denies this. 9. Hyperlipidemia. Continue pravastatin. 10. Hypertension. Continue amlodipine, lisinopril, indapamide, aspirin postop. Medical - PN: Qual - VTE Deep Vein Thrombosis/Pulmonary Embolism Present on Admission: No
[2016-12-18] MEDS ORDERED: ONDANSETRON 4 MG/2 ML VIAL IV PRN (12:26)
[2016-12-18] MEDS ORDERED: ACETAMINOPHEN 325 MG TABLET PO PRN (12:26)
[2016-12-18] MEDS ORDERED: ALBUTEROL SULFATE 2.5 MG/3 ML NEBULIZER NEB PRN (12:26)
[2016-12-18] MEDS ORDERED: BISACODYL 10 MG SUPP.RECT PR PRN (12:26)
[2016-12-18] MEDS ORDERED: BENZOCAINE/MENTHOL 1 LOZENGE PO PRN (12:26)
[2016-12-18] MEDS ORDERED: ONDANSETRON ODT 4 MG TABLET SL PRN (12:26)
[2016-12-18] MEDS ORDERED: SENNOSIDES 1 TABLET PO PRN (12:26)
[2016-12-18] MEDS ORDERED: HYDROXYUREA 500 MG CAPSULE PO SCH (14:00)
[2016-12-18] MEDS: METHOCARBAMOL 1,000 MG/10 ML VIAL IV PRN ×2 (15:43→20:42)
[2016-12-18] MEDS: HYDROXYUREA 500 MG CAPSULE PO SCH ×3 (15:43→18:34)
[2016-12-18] MEDS ORDERED: ceFAZolin 1 GM VIAL IV SCH (19:45)
[2016-12-18] MEDS: LISINOPRIL 10 MG TABLET PO SCH (20:31)
[2016-12-18] MEDS: HEPARIN 5,000 UNIT/ML VIAL SQ SCH (20:32)
[2016-12-18] MEDS ORDERED: DOCUSATE SODIUM 100 MG CAPSULE PO SCH (21:00)
[2016-12-18] MEDS ORDERED: HEPARIN 5,000 UNIT/ML VIAL SQ SCH (21:00)
[2016-12-19] MEDS: HYDROcodone/APAP 5/325MG TABLET PO PRN ×3 (03:45→14:29)
[2016-12-19] MEDS: METHOCARBAMOL 1,000 MG/10 ML VIAL IV PRN ×4 (03:45→23:50)
[2016-12-19 06:45] LABS: Basophils # (Auto) 0 K/mcL (0.0-0.3); Basophils % (Auto) 0 % (0.0-2.0); Eosinophils # (Auto) 0.1 K/mcL (0.0-0.7); Eosinophils % (Auto) 0.5 % (0.0-7.0); Granulocytes % (Auto) 89.8 % (38.0-78.0); Lymphocytes # (Auto) 0.4 K/mcL (1.5-4.8); Lymphocytes % (Auto) 3.4 % (15.5-49.0); Mean Cell Volume 110.8 fL (80.0-100.0); Mean Corpuscular HGB Conc 33.8 g/dL (31.0-36.0); Mean Corpuscular Hemoglobin 37.5 pg (26.0-34.0); Monocytes # (Auto) 0.7 K/mcL (0.1-0.9); Monocytes % (Auto) 6.3 % (1.0-12.0); Platelet Count 334 K/mcL (140-440); RBC 2.66 M/mcL (4.00-5.20)
[2016-12-19 07:58] LABS: ALT/SGPT 8 U/l (0-40); Albumin 3.2 gm/dL (3.2-5.2); Albumin/Globulin Ratio 1.3 (1.0-2.3); Alkaline Phosphatase 52 U/L (39-117); Bilirubin,Direct < 0.2 mg/dL (0.0-0.3); Blood Urea Nitrogen 19 mg/dl (8-23); Gamma Glutamyl Transpeptidase 7 U/L (5-36); Magnesium 1.9 mg/dL (1.6-2.5); Uric Acid 3.7 mg/dL (2.5-8.0)
[2016-12-19] MEDS: ASPIRIN 81 MG TAB.CHEW PO SCH (08:11)
[2016-12-19] MEDS: HEPARIN 5,000 UNIT/ML VIAL SQ SCH ×2 (08:11→20:25)
[2016-12-19] MEDS: CALCIUM CARBONATE 500 MG TAB.CHEW CHEWED SCH ×2 (08:11→20:25)
[2016-12-19] MEDS: amLODIPine 10 MG TABLET PO SCH (08:11)
[2016-12-19] MEDS: DOCUSATE SODIUM 100 MG CAPSULE PO SCH ×2 (08:11→20:23)
[2016-12-19] MEDS: VITAMIN D3 1,000 UNIT TABLET PO SCH (08:11)
[2016-12-19] MEDS: 0.9 % SODIUM CHLORIDE 10 ML SYRINGE IV SCH ×3 (08:12→20:27)
[2016-12-19] MEDS: INDAPAMIDE 2.5 MG TABLET PO SCH ×2 (08:13→08:30)
--- NOTE | 2016-12-19 09:44 | Orthopedic Progress Note ---
Subjective Patient information: Note initiated : 12/19/16 at 9:42 am Service Date, if different from initiated Date: [] Patient: Roseann Adamson 86 y/o F admitted on 12/17/16 for Fall On Rt Hip/ Fracture of Hip. Chief Complaint: [] Interval history: Patient is doing very well and having little pain. She is ambulating with PT and having some weakness but overall is improving. She desires to go to as SNF for a short term to get back her strength before returning to home. She denies any other acute symptoms. Objective Vital signs: Vital Signs Temp Pulse Resp BP BP Pulse Ox 12/19/16 06:25 96.6 F L 16 123/70 96 12/19/16 06:04 93 12/19/16 04:00 97.5 F 80 22 133/63 92 12/18/16 23:53 97.4 F 68 16 147/63 94 12/18/16 19:48 98.5 F 72 20 134/67 95 12/18/16 16:00 97.7 F 18 144/55 91 12/18/16 11:19 96.3 F L 18 144/69 95 Intake and Output 12/18/16 12/19/16 12/19/16 21:59 05:59 13:59 Intake Total 300 / 300 50 / 50 Output Total 1250 / 1250 1500 / 1500 Balance -1250 / -1250 -1200 / -1200 50 / 50 Intake: Oral 300 / 300 50 / 50 Output: Urine Catheter Amount 1250 / 1250 1500 / 1500 Other: Meal Breakfast Percent of Meal Consumed 50% Weight 118 lb Intake & Output: Intake & Output 12/18/16 12/19/16 12/19/16 21:59 05:59 13:59 Intake Total 300 / 300 50 / 50 Output Total 1250 / 1250 1500 / 1500 Balance -1250 / -1250 -1200 / -1200 50 / 50 Weight 118 lb Intake: Oral 300 / 300 50 / 50 Output: Urine Catheter Amount 1250 / 1250 1500 / 1500 Other: Meal Breakfast Percent of Meal Consumed 50% Incision: Yes healing Incision clean and dry: Yes Dressing: Yes clean, Yes dry, Yes intact Weight bearing status: as tolerated Extremities exam IM: Yes Foot pink and warm, Yes neurovascular intact - Labs CBC & BMP: 12/19/16 05:00 12/19/16 05:00 Labs: Orthopedic Labs 12/19/16 12/18/16 07:14 06:15 PT 15.3 H 14.9 H INR 1.2 H 1.1 12/19/16 12/18/16 05:00 06:15 Hgb 10.0 L 10.8 L Hct 29.5 L 31.2 L Assessment and Plan (1) Intertrochanteric fracture of right hip Patient is doing very well and wants to go to a SNF on wednesday. We will discontinue her Dyer today and she will continue working with PT over the weekend. She is to be WBAT on the RLE. Status: Acute
[2016-12-19] MEDS: HYDROXYUREA 500 MG CAPSULE PO SCH (14:28)
--- NOTE | 2016-12-19 15:27 | Internal Med Progress Note ---
Medical - PN: Subj Patient information: Note initiated : 12/19/16 at 3:27 pm Patient: Roseann Adamson 86 y/o F admitted on 12/17/16 for Fall On Rt Hip/ Fracture of Hip. Interval history: December 17:History of present illness: Ms. Adamson is a 86 year old female with a history of polycythemia vera, peripheral vascular disease, hypertension, who was in her normal state of health until this morning, when she says she put her foot down wrong and just lost her balance and fell. She presented to the emergency room, where a right hip fracture was diagnosed. Dr. Baer asked that I admit her to my service, and he will plan on fixing her hip this afternoon. The patient says that otherwise, she was feeling fine. She denies any recent fever or chills, headaches or dizziness, new eye or ear symptoms, sore throat or cough, chest pain or palpitations, shortness of breath or wheezing, abdominal pain, nausea or vomiting December 18: Today, the patient feels like she is doing pretty well. She says she is not having hip pain, but is still having fairly severe muscle spasms around the hip. She was a little unsteady on her feet, due to muscle spasms. Otherwise, she denies fever or chills, headaches or dizziness, chest pain or shortness of breath, abdominal pain, nausea or vomiting, diarrhea or constipation. -white blood cell count was elevated on admission, but is back down to normal today. She did receive 2 or 3 doses of Ancef in the perioperative period. December 19: Today, the patient says she is doing fine. However, she continues to have fairly severe spasms around the right upper leg, with movement. Physical therapy think she is at high fall risk, and the patient is now more agreeable to going to rehab rather than going straight home. Otherwise, she denies fever or chills, chest pain or palpitations, shortness of breath, abdominal pain, nausea or vomiting or diarrhea,. Dyer catheter is to be removed later today. - Constitutional Vitals: Vital Signs Temp Pulse Resp BP Pulse Ox 98.1 F 80 16 101/48 92 12/19/16 11:12/19/16 04:00 12/19/16 11:12/19/16 11:17 14:44 Period Temp Pulse Resp BP Sys/Cervantes Pulse Ox Last 24 Hr 96.6 F-98.5 F 68-80 16-22 101-147/48-70 91-96 Intake and Output 12/19/16 12/19/16 12/19/16 05:59 13:59 21:59 Intake Total 300 / 300 50 / 50 Output Total 1500 / 1500 325 / 325 Balance -1200 / -1200 50 / 50 -325 / -325 Intake & Output: Intake & Output 12/19/16 12/19/16 12/19/16 05:59 13:59 21:59 Intake Total 300 / 300 50 / 50 Output Total 1500 / 1500 325 / 325 Balance -1200 / -1200 50 / 50 -325 / -325 Intake: Oral 300 / 300 50 / 50 Output: Urine Catheter Amount 1500 / 1500 325 / 325 Other: Meal Breakfast Percent of Meal Consumed 50% Blood pressure 107/58. O2 saturation 92% on 1 L. On exam, she is sitting up in a chair. She is fairly comfortable. Neck is supple without obvious lymphadenopathy or JVD. Cardiac exam shows regular rate and rhythm. Lungs are clear to auscultation. Abdomen is soft. Extremities show no significant edema. Right hip is bandaged. Neurologic exam is grossly nonfocal Medical - PN: Obj Da - Labs CBC & Chem 7: 12/19/16 05:00 12/19/16 05:00 Labs: Abnormal Lab Results 12/19/16 12/19/16 12/19/16 07:14 05:00 05:00 RBC 2.66 L Hgb 10.0 L Hct 29.5 L MCV 110.8 H MCH 37.5 H RDW 15.0 H Gran % 89.8 H Lymph % (Auto) 3.4 L Gran # 9.8 H Lymph # (Auto) 0.4 L PT 15.3 H INR 1.2 H Carbon Dioxide 19 L Glucose 117 H Calcium 7.9 L Lactate Dehydrogenase 307 H Total Protein 5.7 L Globulin Triglycerides 204 H 12/18/16 12/18/16 12/18/16 06:15 06:15 06:15 RBC 2.82 L Hgb 10.8 L Hct 31.2 L MCV 110.7 H MCH 38.1 H RDW 14.7 H Gran % 94.9 H Lymph % (Auto) 2.2 L Gran # 8.8 H Lymph # (Auto) 0.2 L PT 14.9 H INR Carbon Dioxide Glucose 121 H Calcium 8.2 L Lactate Dehydrogenase Total Protein 5.7 L Globulin 2.1 L Triglycerides December 18: Blood cultures are negative so far. December 17: Urinalysis showed a few crystals, and hyaline casts, but was otherwise normal. White blood cell count 17,000, platelet count 559,000 EKG: Normal sent sinus rhythm at about 75. No ischemic changes. Chest x-ray: Enlarged pulmonary arteries, suggesting pulmonary hypertension. COPD changes noted no infiltrates. Right hip x-ray: Minimally displaced intertrochanteric fracture of the right hip. Osteoporosis. Meds: Medications Acetaminophen (Tylenol) 650 mg PO Q6HP PRN PRN Reason: PAIN/FEVER > 101 Hydrocodone Bitart/Acetaminophen ([place] 5/325mg) 0 tab PO Q4HP PRN PRN Reason: Pain Last Admin: 12/19/16 14:29 Dose: 1 tab Albuterol Sulfate (Ventolin) 2.5 mg NEB Q2HP PRN PRN Reason: Shortness Of Breath Amlodipine Besylate (Norvasc) 10 mg PO QDAY [facility] Last Admin: 12/19/16 08:11 Dose: 10 mg Aspirin (Aspirin) 81 mg PO DAILY [facility] Last Admin: 12/19/16 08:11 Dose: 81 mg Bisacodyl (Dulcolax) 10 mg LA Q2-3DAYS PRN PRN Reason: Constipation Calcium Carbonate/Glycine (Tums) 500 mg CHEWED BID [facility] Last Admin: 12/19/16 08:11 Dose: 500 mg Docusate Sodium (Colace) 100 mg PO BID [facility] Last Admin: 12/19/16 08:11 Dose: 100 mg Heparin Sodium (Porcine) (Heparin) 5,000 unit SQ Q12 [facility] Last Admin: 12/19/16 08:11 Dose: 5,000 unit Hydroxyurea (Hydrea) 500 mg PO DAILY@1400 [facility] Last Admin: 12/19/16 14:28 Dose: 500 mg Indapamide (Lozol) 2.5 mg PO DAILY [facility] Last Admin: 12/19/16 08:30 Dose: 2.5 mg Lisinopril (Zestril) 10 mg PO HS [facility] Last Admin: 12/18/16 20:31 Dose: 10 mg Magnesium Hydroxide (Milk Of Magnesia) 30 ml PO DAILYP PRN PRN Reason: Constipation Methocarbamol (Robaxin) 750 mg IV Q6HP PRN PRN Reason: Muscle Spasm Last Admin: 12/19/16 10:29 Dose: 750 mg Morphine Sulfate (Morphine) 2 mg IV Q1HP PRN PRN Reason: Pain Last Admin: 12/18/16 13:24 Dose: 2 mg Ondansetron HCl (Zofran) 4 mg IV Q4HP PRN PRN Reason: Nausea And Vomiting Ondansetron HCl (Zofran Odt) 4 mg SL Q4HP PRN PRN Reason: Nausea And Vomiting Senna (Senokot) 2 tab PO HS PRN PRN Reason: Constipation Sodium Chloride (Saline Flush) 10 ml IV Q8 [facility] Last Admin: 12/19/16 14:28 Dose: 10 ml Throat Lozenges (Cepacol) 1 lozenge PO PRN PRN PRN Reason: Sore Throat Vitamin D (Vitamin D3) 2,000 unit PO DAILY [facility] Last Admin: 12/19/16 08:11 Dose: 2,000 unit Medical - PN: A/P - Time Spent With Patient Total time spent is greater than 50% in coordination of care (as documented) at patient's floor/unit and/or counseling patient: 25 - 35 minutes (1) COPD (chronic obstructive pulmonary disease) Status: Chronic Current Visit: Yes (2) Fracture of hip Status: Acute Current Visit: Yes (3) 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 Status: Chronic Current Visit: No (4) Hypertension, essential Status: Chronic Current Visit: No - Narrative A/P Narrative: #1. Orthopedic. Patient presents after a fall, with a right hip fracture. She is status post ORIF with Dr. Calvert. -DVT prophylaxis--subcu heparin. Continue pain meds, bowel meds, antiemetics. -Dyer catheter. -PT and OT . -Supplement calcium and vitamin D. Consider bisphosphonate at some point. Consider DEXA scan. Her son believes she has osteoporosis, but the patient does not. However, it does sound like she was probably treated for osteoporosis many years ago. 2. Hematologic -History of polycythemia vera. Continue hydroxyurea. Follow blood counts. It is at increased risk for both bleeding and clots. 3. CODE STATUS: Full code, per the son. They both state she does have a living well. 4. DVT prophylaxis: Start subcu heparin tomorrow. I was able to speak with the patient's oncology on-call doctor this evening. He recommended that for DVT prophylaxis we either use subcu Lovenox at 40 mg a day or Eliquis 2.5 mg p.o. twice daily for the next month, depending on how the cost works out for her. He does not think that twice daily aspirin would be adequate for her.. . 5. Pulmonary. Chest x-ray suggestive of COPD. Use albuterol nebs as needed. Chest x-ray is also suggestive of pulmonary artery hypertension, although patient appears asymptomatic. 6. Infectious disease. She does present with leukocytosis with left shift. Improved. -Blood and urine cultures are negative so far.. She did receive perioperative Ancef. #7. Vascular. Patient does have vascular disease. She takes a full-strength aspirin at home. We should add heparin here I would think, postop.. Continue pravastatin also. 8. Renal. -Her chart reports history of CKD 3, but the patient also denies this. 9. Hyperlipidemia. Continue pravastatin. 10. Hypertension. Continue amlodipine, lisinopril, indapamide, aspirin postop. Medical - PN: Qual - VTE Deep Vein Thrombosis/Pulmonary Embolism Present on Admission: No
[2016-12-19] MEDS: LISINOPRIL 10 MG TABLET PO SCH (20:23)
[2016-12-20 06:39] LABS: Basophils # (Auto) 0 K/mcL (0.0-0.3); Basophils % (Auto) 0 % (0.0-2.0); Eosinophils # (Auto) 0.1 K/mcL (0.0-0.7); Eosinophils % (Auto) 1.1 % (0.0-7.0); Lymphocytes # (Auto) 0.5 K/mcL (1.5-4.8); Lymphocytes % (Auto) 6.6 % (15.5-49.0); Mean Cell Volume 114.9 fL (80.0-100.0); Mean Corpuscular HGB Conc 33.1 g/dL (31.0-36.0); Monocytes # (Auto) 0.3 K/mcL (0.1-0.9); Monocytes % (Auto) 4.3 % (1.0-12.0); Platelet Count 325 K/mcL (140-440); RBC 2.68 M/mcL (4.00-5.20); Red Cell Distribution Width 15.8 % (11.5-14.5)
[2016-12-20] MEDS: METHOCARBAMOL 1,000 MG/10 ML VIAL IV PRN ×3 (06:39→20:42)
[2016-12-20] MEDS: HYDROcodone/APAP 5/325MG TABLET PO PRN ×4 (06:40→20:42)
[2016-12-20] MEDS: 0.9 % SODIUM CHLORIDE 10 ML SYRINGE IV SCH ×3 (06:40→20:45)
[2016-12-20 07:41] LABS: ALT/SGPT 9 U/l (0-40); Albumin 3.2 gm/dL (3.2-5.2); Albumin/Globulin Ratio 1.1 (1.0-2.3); Alkaline Phosphatase 62 U/L (39-117); Bilirubin,Direct < 0.2 mg/dL (0.0-0.3); Blood Urea Nitrogen 18 mg/dl (8-23); Gamma Glutamyl Transpeptidase 10 U/L (5-36); Magnesium 2.1 mg/dL (1.6-2.5); Uric Acid 3.8 mg/dL (2.5-8.0)
--- NOTE | 2016-12-20 08:32 | Orthopedic Progress Note ---
Subjective Patient information: Note initiated : 12/20/16 at 8:30 am Service Date, if different from initiated Date: [] Patient: Roseann Adamson 86 y/o F admitted on 12/17/16 for Fall On Rt Hip/ Fracture of Hip. Chief Complaint: [] Principal diagnosis: IT hip fx Objective Vital signs: Vital Signs Temp Pulse Resp BP BP Pulse Ox 12/20/16 03:28 98.2 F 68 18 141/71 97 12/19/16 23:52 97.0 F 62 18 146/73 97 12/19/16 20:00 97.7 F 60 20 109/61 95 12/19/16 19:18 95 12/19/16 15:30 98.5 F 69 20 107/58 92 12/19/16 14:44 92 12/19/16 11:17 98.1 F 16 101/48 94 Intake and Output 12/19/16 12/20/16 12/20/16 21:59 05:59 13:59 Intake Total 940 / 940 300 / 300 Output Total 325 / 325 201 / 201 Balance 615 / 615 99 / 99 Intake: Oral 940 / 940 300 / 300 Output: Urine Catheter Amount 325 / 325 Void Amount 0 / 0 200 / 200 # of times incontinent of 1 / 1 urine Other: Meal Dinner Breakfast Percent of Meal Consumed 50% 100% Feeding Ability Assist with Tray Set Up # Voids 1 Weight 118 lb 8 oz Intake & Output: Intake & Output 12/19/16 12/20/16 12/20/16 21:59 05:59 13:59 Intake Total 940 / 940 300 / 300 Output Total 325 / 325 201 / 201 Balance 615 / 615 99 / 99 Weight 118 lb 8 oz Intake: Oral 940 / 940 300 / 300 Output: Urine Catheter Amount 325 / 325 Void Amount 0 / 0 200 / 200 # of times incontinent of 1 / 1 urine Other: Meal Dinner Breakfast Percent of Meal Consumed 50% 100% Feeding Ability Assist with Tray Set Up # Voids 1 Dressing: Yes clean Weight bearing status: full Extremities exam IM: Yes full ROM, Yes normal capillary refill - Labs CBC & BMP: 12/20/16 06:06 12/20/16 06:06 Labs: Orthopedic Labs 12/20/16 12/19/16 12/18/16 06:06 07:14 06:15 PT 14.6 H 15.3 H 14.9 H INR 1.1 1.2 H 1.1 12/20/16 12/19/16 12/18/16 06:06 05:00 06:15 Hgb 10.2 L 10.0 L 10.8 L Hct 30.9 L 29.5 L 31.2 L Assessment and Plan (1) Fracture of hip Doing well. Transfer to [facility] tomorrow Status: Acute Qualifiers: Fracture type: closed Laterality: right
[2016-12-20] MEDS: DOCUSATE SODIUM 100 MG CAPSULE PO SCH ×2 (08:41→20:25)
[2016-12-20] MEDS: ASPIRIN 81 MG TAB.CHEW PO SCH (08:41)
[2016-12-20] MEDS: VITAMIN D3 1,000 UNIT TABLET PO SCH (08:41)
[2016-12-20] MEDS: amLODIPine 10 MG TABLET PO SCH (08:42)
[2016-12-20] MEDS: HEPARIN 5,000 UNIT/ML VIAL SQ SCH (08:42)
[2016-12-20] MEDS: INDAPAMIDE 2.5 MG TABLET PO SCH (08:42)
[2016-12-20] MEDS: CALCIUM CARBONATE 500 MG TAB.CHEW CHEWED SCH ×2 (08:42→20:26)
[2016-12-20] MEDS: MAGNESIUM HYDROXIDE 30 ML ORAL.SUSP PO PRN (10:59)
--- NOTE | 2016-12-20 11:10 | Internal Med Progress Note ---
Medical - PN: Subj Patient information: Note initiated : 12/20/16 at 11:07 am Patient: Roseann Adamson 86 y/o F admitted on 12/17/16 for Fall On Rt Hip/ Fracture of Hip. Interval history: December 17:History of present illness: Ms. Adamson is a 86 year old female with a history of polycythemia vera, peripheral vascular disease, hypertension, who was in her normal state of health until this morning, when she says she put her foot down wrong and just lost her balance and fell. She presented to the emergency room, where a right hip fracture was diagnosed. Dr. Baer asked that I admit her to my service, and he will plan on fixing her hip this afternoon. The patient says that otherwise, she was feeling fine. She denies any recent fever or chills, headaches or dizziness, new eye or ear symptoms, sore throat or cough, chest pain or palpitations, shortness of breath or wheezing, abdominal pain, nausea or vomiting December 18: Today, the patient feels like she is doing pretty well. She says she is not having hip pain, but is still having fairly severe muscle spasms around the hip. She was a little unsteady on her feet, due to muscle spasms. Otherwise, she denies fever or chills, headaches or dizziness, chest pain or shortness of breath, abdominal pain, nausea or vomiting, diarrhea or constipation. -white blood cell count was elevated on admission, but is back down to normal today. She did receive 2 or 3 doses of Ancef in the perioperative period. December 19: Today, the patient says she is doing fine. However, she continues to have fairly severe spasms around the right upper leg, with movement. Physical therapy think she is at high fall risk, and the patient is now more agreeable to going to rehab rather than going straight home. Otherwise, she denies fever or chills, chest pain or palpitations, shortness of breath, abdominal pain, nausea or vomiting or diarrhea,. Dyer catheter is to be removed later today. December 20: Patient says she is feeling even better today. She continues to have significant spasms in the right upper leg, but was able to walk out to the [place] with a walker and physical therapy today. She thinks the pain is a little less intense with the muscle spasms. She has a low-grade intermittent cough, which she says she always has. She blames it on allergies. Otherwise, she denies fever chills, chest pain or shortness of breath, GI or symptoms. She originally was refusing rehab placement, insisting on going home, but is having enough trouble walking, that she is now agreeable to go to rehab for strengthening prior to returning home. - Constitutional Vitals: Vital Signs Temp Pulse Resp BP Pulse Ox 98.8 F 68 16 104/63 95 12/20/16 08:00 12/20/16 03:28 12/20/16 08:00 12/20/16 08:00 12/20/16 08:00 Period Temp Pulse Resp BP Sys/Cervantes Pulse Ox Last 24 Hr 97.0 F-98.8 F 60-69 16-20 101-146/48-73 92-97 Intake and Output 12/19/16 12/20/16 12/20/16 21:59 05:59 13:59 Intake Total 940 / 940 300 / 300 Output Total 325 / 325 201 / 201 201 / 201 Balance 615 / 615 99 / 99 -201 / -201 Weight 118 lb 8 oz Intake & Output: Intake & Output 12/19/16 12/20/16 12/20/16 21:59 05:59 13:59 Intake Total 940 / 940 300 / 300 Output Total 325 / 325 201 / 201 201 / 201 Balance 615 / 615 99 / 99 -201 / -201 Weight 118 lb 8 oz Intake: Oral 940 / 940 300 / 300 Output: Urine Catheter Amount 325 / 325 Void Amount 0 / 0 200 / 200 200 / 200 # of times incontinent of urine Other: Meal Dinner Breakfast Percent of Meal Consumed 50% 100% Feeding Ability Assist with Tray Set Up # Voids 1 1 She is currently satting 95% on room air. On exam, she is sitting up in a chair. She is fairly comfortable. Neck is supple without obvious lymphadenopathy or JVD. Cardiac exam shows regular rate and rhythm. Lungs are clear to auscultation. Abdomen is soft. Extremities show no significant edema. Right hip is bandaged. Neurologic exam is grossly nonfocal Medical - PN: Obj Da - Labs CBC & Chem 7: 12/20/16 06:06 12/20/16 06:06 Labs: Abnormal Lab Results 12/20/16 12/20/16 12/20/16 06:06 06:06 06:06 RBC 2.68 L Hgb 10.2 L Hct 30.9 L MCV 114.9 H MCH 38.0 H RDW 15.8 H Gran % 88.0 H Lymph % (Auto) 6.6 L Gran # Lymph # (Auto) 0.5 L PT 14.6 H INR Carbon Dioxide Glucose Calcium 8.5 L Phosphorus 2.5 L Lactate Dehydrogenase Total Protein Globulin Triglycerides 206 H 12/19/16 12/19/16 12/19/16 07:14 05:00 05:00 RBC 2.66 L Hgb 10.0 L Hct 29.5 L MCV 110.8 H MCH 37.5 H RDW 15.0 H Gran % 89.8 H Lymph % (Auto) 3.4 L Gran # 9.8 H Lymph # (Auto) 0.4 L PT 15.3 H INR 1.2 H Carbon Dioxide 19 L Glucose 117 H Calcium 7.9 L Phosphorus Lactate Dehydrogenase 307 H Total Protein 5.7 L Globulin Triglycerides 204 H 12/18/16 12/18/16 12/18/16 06:15 06:15 06:15 RBC 2.82 L Hgb 10.8 L Hct 31.2 L MCV 110.7 H MCH 38.1 H RDW 14.7 H Gran % 94.9 H Lymph % (Auto) 2.2 L Gran # 8.8 H Lymph # (Auto) 0.2 L PT 14.9 H INR Carbon Dioxide Glucose 121 H Calcium 8.2 L Phosphorus Lactate Dehydrogenase Total Protein 5.7 L Globulin 2.1 L Triglycerides December 18: Blood cultures are negative so far. December 17: Urinalysis showed a few crystals, and hyaline casts, but was otherwise normal. White blood cell count 17,000, platelet count 559,000 EKG: Normal sent sinus rhythm at about 75. No ischemic changes. Chest x-ray: Enlarged pulmonary arteries, suggesting pulmonary hypertension. COPD changes noted no infiltrates. Right hip x-ray: Minimally displaced intertrochanteric fracture of the right hip. Osteoporosis. Meds: Medications Acetaminophen (Tylenol) 650 mg PO Q6HP PRN PRN Reason: PAIN/FEVER > 101 Hydrocodone Bitart/Acetaminophen (Ione 5/325mg) 0 tab PO Q4HP PRN PRN Reason: Pain Last Admin: 12/20/16 10:58 Dose: 1 tab Albuterol Sulfate (Ventolin) 2.5 mg NEB Q2HP PRN PRN Reason: Shortness Of Breath Amlodipine Besylate (Norvasc) 10 mg PO QDAY [facility] [place] Last Admin: 12/20/16 08:42 Dose: Not Given Aspirin (Aspirin) 81 mg PO DAILY [facility] [place] Last Admin: 12/20/16 08:41 Dose: 81 mg Bisacodyl (Dulcolax) 10 mg CO Q2-3DAYS PRN PRN Reason: Constipation Calcium Carbonate/Glycine (Tums) 500 mg CHEWED BID [facility] [place] Last Admin: 12/20/16 08:42 Dose: 500 mg Docusate Sodium (Colace) 100 mg PO BID [facility] [place] Last Admin: 12/20/16 08:41 Dose: 100 mg Heparin Sodium (Porcine) (Heparin) 5,000 unit SQ Q12 [facility] [place] Last Admin: 12/20/16 08:42 Dose: 5,000 unit Hydroxyurea (Hydrea) 500 mg PO DAILY@1400 [facility] [place] Last Admin: 12/19/16 14:28 Dose: 500 mg Indapamide (Lozol) 2.5 mg PO DAILY [facility] [place] Last Admin: 12/20/16 08:42 Dose: Not Given Lisinopril (Zestril) 10 mg PO HS [facility] [place] Last Admin: 12/19/16 20:23 Dose: 10 mg Magnesium Hydroxide (Milk Of Magnesia) 30 ml PO DAILYP PRN PRN Reason: Constipation Last Admin: 12/20/16 10:59 Dose: 30 ml Methocarbamol (Robaxin) 750 mg IV Q6HP PRN PRN Reason: Muscle Spasm Last Admin: 12/20/16 06:39 Dose: 750 mg Morphine Sulfate (Morphine) 2 mg IV Q1HP PRN PRN Reason: Pain Last Admin: 12/18/16 13:24 Dose: 2 mg Ondansetron HCl (Zofran) 4 mg IV Q4HP PRN PRN Reason: Nausea And Vomiting Ondansetron HCl (Zofran Odt) 4 mg SL Q4HP PRN PRN Reason: Nausea And Vomiting Senna (Senokot) 2 tab PO HS PRN PRN Reason: Constipation Sodium Chloride (Saline Flush) 10 ml IV Q8 [facility] [place] Last Admin: 12/20/16 06:40 Dose: 10 ml Throat Lozenges (Cepacol) 1 lozenge PO PRN PRN PRN Reason: Sore Throat Vitamin D (Vitamin D3) 2,000 unit PO DAILY [facility] [place] Last Admin: 12/20/16 08:41 Dose: 2,000 unit Medical - PN: A/P - Time Spent With Patient Total time spent is greater than 50% in coordination of care (as documented) at patient's floor/unit and/or counseling patient: 15 - 24 minutes (1) COPD (chronic obstructive pulmonary disease) Status: Chronic Current Visit: Yes (2) Fracture of hip Status: Acute Current Visit: Yes (3) 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 Status: Chronic Current Visit: No (4) Hypertension, essential Status: Chronic Current Visit: No - Narrative A/P Narrative: #1. Orthopedic. Patient presents after a fall, with a right hip fracture. She is status post ORIF with Dr. Calvert. -DVT prophylaxis--subcu Lovenox. Continue pain meds, bowel meds, antiemetics. -Dyer catheter. -PT and OT . -Supplement calcium and vitamin D. Consider bisphosphonate at some point. Consider DEXA scan. Her son believes she has osteoporosis, but the patient does not. However, it does sound like she was probably treated for osteoporosis many years ago. 2. Hematologic -History of polycythemia vera. Continue hydroxyurea. Follow blood counts. It is at increased risk for both bleeding and clots. -She did drop her hemoglobin from 14 down to 10 after surgery. Continue to follow 3. CODE STATUS: Full code, per the son. They both state she does have a living well. 4. DVT prophylaxis: Lovenox. I was able to speak with the patient's oncology on-call doctor . He recommended that for DVT prophylaxis we either use subcu Lovenox at 40 mg a day or Eliquis 2.5 mg p.o. twice daily for the next month, depending on how the cost works out for her. He does not think that twice daily aspirin would be adequate for her.. -Reviewed this with the patient today, and it sounds like she is willing to do either one, depending on the cost. Lovenox for now. chacorta cbc in am. . 5. Pulmonary. Chest x-ray suggestive of COPD. Use albuterol nebs as needed. Chest x-ray is also suggestive of pulmonary artery hypertension, although patient appears asymptomatic. 6. Infectious disease. She does present with leukocytosis with left shift. Improved. -Blood and urine cultures are negative so far.. She did receive perioperative Ancef. #7. Vascular. Patient does have vascular disease. She takes a full-strength aspirin at home. Lovenox added.. Continue pravastatin also. We may want to decrease asa dose while on lovenox. 8. Renal. -Her chart reports history of CKD 3, but the patient also denies this. Renal function looks fairly normal here. 9. Hyperlipidemia. Continue pravastatin. 10. Hypertension. Controlled. Continue amlodipine, lisinopril, indapamide, aspirin postop. Medical - PN: Qual - VTE Deep Vein Thrombosis/Pulmonary Embolism Present on Admission: No
[2016-12-20] MEDS: HYDROXYUREA 500 MG CAPSULE PO SCH (14:48)
[2016-12-20] MEDS: LISINOPRIL 10 MG TABLET PO SCH (20:25)
[2016-12-20] MEDS: ENOXAPARIN 40 MG/0.4 ML SYRINGE SQ SCH (20:33)
[2016-12-21] MEDS: HYDROcodone/APAP 5/325MG TABLET PO PRN (06:41)
[2016-12-21] MEDS: METHOCARBAMOL 1,000 MG/10 ML VIAL IV PRN (06:42)
[2016-12-21] MEDS: 0.9 % SODIUM CHLORIDE 10 ML SYRINGE IV SCH (07:05)
[2016-12-21] MEDS: MAGNESIUM HYDROXIDE 30 ML ORAL.SUSP PO PRN (08:01)
[2016-12-21] MEDS: ENOXAPARIN 40 MG/0.4 ML SYRINGE SQ SCH (08:01)
[2016-12-21] MEDS: ASPIRIN 81 MG TAB.CHEW PO SCH (08:01)
[2016-12-21] MEDS: VITAMIN D3 1,000 UNIT TABLET PO SCH (08:01)
[2016-12-21] MEDS: DOCUSATE SODIUM 100 MG CAPSULE PO SCH (08:01)
[2016-12-21] MEDS: CALCIUM CARBONATE 500 MG TAB.CHEW CHEWED SCH (08:01)
[2016-12-21] MEDS: amLODIPine 10 MG TABLET PO SCH (08:06)
[2016-12-21] MEDS: INDAPAMIDE 2.5 MG TABLET PO SCH (08:06)
--- NOTE | 2016-12-21 10:40 | Discharge Summary ---
Medical - DS: Prov Patient information: Note initiated : 12/21/16 at 10:36 am Service Date, if different from initiated Date: [] Patient: Roseann Adamson 86 y/o F admitted on 12/17/16 for Fall On Rt Hip/ Fracture of Hip. Chief Complaint: [] Date of admission: 12/17/16 15:59 Discharge date: 12/21/16 Primary care physician: Manohar Steiner Admitting clinician: Shira Vicente Discharging clinician: Melody Silvestre Medical - DS: Meds - Discharge Medications Prescriptions: Enoxaparin [Lovenox] 40 mg SQ DAILY #30 HYDROcodone/APAP 5/325MG [[place] 5/325Mg] 1 tab PO Q4HP PRN #40 tablet PRN Reason: Pain Methocarbamol [Robaxin] 500 mg PO TIDP PRN #60 tablet PRN Reason: muscle spasms. Active and Home Medications: Home Medications aspirin 325 mg tablet 325 mg PO QDAY tab 02/28/15 [History Confirmed 12/17/16 Last Taken 12/17/16 325 MG.] hydroxyurea 500 mg capsule 500 mg PO QDAY cap 02/28/15 [History Confirmed 12/17 Last Taken 12/17/16 500 MG.] amlodipine 10 mg tablet 10 mg PO QDAY #90 tab 10/27/16 [Rx Confirmed 12/17/16 Last Taken 12/17/16 10 MG.] indapamide 2.5 mg tablet 2.5 mg PO QAM #90 tab 10/27/16 [Rx Confirmed 12/17/16 Last Taken 12/17/16 2.5MG.] lisinopril 10 mg tablet 10 mg PO QDAY #90 tab 10/27/16 [Rx Confirmed 12/17/16 Last Taken 12/17/16 110 MG.] pravastatin 80 mg tablet 80 mg PO QHS #90 tab 10/27/16 [Rx Confirmed 12/17/16 Last Taken 12/16/16 80 MG.] Medical - DS: Hosp Hospital course: Mr. Adamson is a 86 year old Female with h/o polycythemia, CKD, HTn who presented to the hospital after a fall, X ray of the hip showed right hip fracture. Admitted for further management. Right Hip Fracture: Seen by Dr Ramirez,, s/p right hip SP nail, the patient tolerated the procedure well. She will follow up with Ortho as per protocol She will need ongoing rehab after surgyer, and will be d/c to snf for rehab. DVT prophylaxis: Given hip fracture and hematological issues, pt high risk of DVT, she will be on lovenox 40mg sq daily while she is at the rehab facility for DVT prophylaxis. After she goes home however the patient is not keen on taking injections. She would prefer to go home on eliquis for which she is willing to pay for. The patient will need a prescription for eliquis 2.5mg bid. Total duration of anticoagulation would be around 30 days. So she would need eqiluis for days when she is discharged from snf to home. She has been advised to hold off on ASA while she is on anticoagulation. Pt verbalized understanding. HTN Bp remained stable, she continued her home meds. She will continiue same at discharge. Hydroxycurea: hb stable during hospitaliztion, continue hydroxyurea. Discharge diagnosis: Right Hip Fracture. - Time Spent with Patient Total time spent providing and/or coordinating discharge services: Greater than 30 minutes Medical - DS: Exam - Constitutional Vitals: Vital Signs Temp Pulse Resp BP Pulse Ox 12/21/16 08:40 92 12/21/16 06:58 97.6 F 55 L 18 102/54 94 12/21/16 03:37 98.3 F 58 L 18 115/54 12/20/16 23:01 99.2 F H 68 14 151/66 92 12/20/16 19:21 98.7 F 62 14 131/73 93 12/20/16 16:00 98.5 F 68 16 112/74 94 12/20/16 11:37 98.5 F 58 L 16 104/54 91 Intake and Output 12/20/16 12/21/16 12/21/16 21:59 05:59 13:59 Intake Total 740 / 740 300 / 300 Output Total 300 / 300 300 / 300 Balance 440 / 440 0 / 0 Intake: Oral 740 / 740 300 / 300 Output: Void Amount 300 / 300 300 / 300 Other: Meal Dinner Percent of Meal Consumed 75% Weight 114 lb 8 oz Additional comments: Constitutional; Afebrile, cooperative, alert, not in distress. Eyes- No icterus, , No periorbital swelling Ears- Ext ear normal, hearing normal to conversation. Neck- Midline trachea, supple Respiratory system: Air Entry equal on both sides, No crackles or wheezing, no rhonchi. CVS- Rate rhythm regular, S1,S2 heard, no gallop, no rub. Abdomen- Soft nontender abdomen, no organomegaly, no tenderness, no guarding or rigidity, DELINQUENCY COUNSELOR- AOOx3, moving all extremities, no gross focal deficit noted. Medical - DS: Data Labs on day of discharge: Labs from last 24 hours 12/21/16 06:27 Hgb 11.1 L Hct 33.1 L Preliminary micro results at discharge 12/17/16 17:00 Blood Culture - Preliminary Blood 12/17/16 16:56 Blood Culture - Preliminary Blood Medical - DS: A/P - Patient/Caregiver Discharge Instructions Activity: as per physical therapy, increase activity as tolerated Diet: Regular Diet Additional Instructions: Discharge Instructions: Do the exercises at home that physical therapy gave you. Take your prescription, photo ID, insurance cards, and current medication list with you to your first physical therapy appointment. Take your prescription to brass pickler any medication or equipment (such as walker, crutches, toilet riser or C.P.M.) Wear comfortable clothing for your physical therapy. Weight bearing as tolerated. If you have the Aquacel Ag dressing, leave in place for 7 days then remove. If dressing becomes soiled (turns black), remove and use gauze 4x4 dressing and silvasorb ointment and change daily. Keep incision clean and dry. To avoid constipation while taking any narcotic pain medication, take an over the counter stool softener/laxative. Use ice packs as directed, on for 20 minutes at a time throughout the day. This and elevation will help with pain and swelling. Call your physician for fevers above 100.5 or pain not controlled by medication. Your prescriptions are with your discharge information. Some medications were electronically transmitted to your pharmacy of choice. Hold ASA while on Anticoagulation with lovenox or elquis, resume same after you finish the dosing. You will need a new prescription for eliquis at the time of discharge from the Rehab facility, please talk to your PCP for same. - Follow up Plan Follow up with: Manohar Calvert MD [Physician] - (Call on Wednesday to set up post surgery appointment for 10-12 days.) Disposition: Xfer SNF Prognosis: Fair Rehab Potential: Fair I certify that the patient requires SNF services: Yes Overall status at discharge: patient is progressing back to baseline Medical - DS: Qual - VTE Deep Vein Thrombosis/Pulmonary Embolism Present on Admission: No
== END 2016-12-21 11:15 | DRG 482 ==
LOC: ED 12:44 → MEDSUR 15:59
PROVIDERS: ADMIT Internal Medicine; ATTEND Internal Medicine

== ENCOUNTER 2020-02-08 02:22 | Inpatient (IN) ==
[2020-02-08] MEDS ORDERED: 0.9 % SODIUM CHLORIDE 500 ML IV ONE (02:34)
[2020-02-08] MEDS ORDERED: 0.9 % SODIUM CHLORIDE 1,000 ML IV ONE (03:28)
[2020-02-08 03:38] LABS: Hematocrit 32.8 % (34.1-44.9); Hemoglobin 9.7 g/dL (11.2-15.7); Mean Cell Volume 100.3 fL (80.0-100.0); Mean Corpuscular HGB Conc 29.6 g/dL (31.0-36.0); Mean Platelet Volume 10.7 fL (7.4-10.4); Platelet Count 545 K/mcL (140-440); RBC 3.27 M/mcL (3.59-5.38); Red Cell Distribution Width 16.9 % (11.5-14.5); WBC 29.5 K/mcL (4.50-11.00)
[2020-02-08 03:54] LABS: ALT/SGPT 15 U/l (0-40); AST/SGOT 26 U/l (0-37); Albumin 3.1 gm/dL (3.2-5.2); Albumin/Globulin Ratio 0.9 (1.0-2.3); Alkaline Phosphatase 268 U/L (39-117); Bilirubin,Total 0.9 mg/dL (0.0-1.0); Blood Urea Nitrogen 26 mg/dl (8-23); Calcium 9.1 mg/dl (8.6-10.4); Carbon Dioxide 25 mmol/L (22-30); Chloride 98 mmol/L (96-108); Globulin 3.4 gm/dL (2.2-3.7); Glomerular Filtration Rate 51; Glucose 233 mg/dL (70-105)
[2020-02-08] MEDS ORDERED: PIPERACILLIN SODIUM/TAZOBACTAM 3.375 GM in DEXTROSE 5% IN WATER 50 ML IV ONE (04:17)
[2020-02-08 04:21] LABS: Anisocytosis 1+ (NONE SEEN); Band Neutrophils % 1 % (0-10); Basophils % (Manual) 1 % (0-2); Lymphocytes % 1 % (15-49); Macrocytosis 1+ (NONE SEEN); Monocytes % (Manual) 2 % (1-12); Platelet Estimate INCREASED (NORMAL); RBC Morphology ABNORM (NORMAL); Segmented Neutrophils % 95 % (38-78)
[2020-02-08 04:33] LABS: ABG Methemoglobin 0.3 % (0.4-1.5); Total Hemoglobin 8.6 gm/dL (12.0-15.0); VBG Base Excess -0.6 (-2.0-2.0); VBG HCO3 25.1 mmol/L (24.0-28.0); VBG Oxygen Saturation 90.8 % (40.0-70.0); VBG PCO2 46.9 mmHg (41.0-51.0); VBG PH 7.35 U (7.32-7.42); VBG PO2 132 mmHg (25-40); VBG Total CO2 26.6 mmol/L (25.0-29.0)
[2020-02-08 04:39] LABS: Appearance,Urine CLEAR; Bacteria,Urine 0 /hpf (0); Bilirubin,Urine NEG (NEG); Color,Urine YELLOW; Culture Indicated,Urine YES; Glucose,Urine (UA) 50 mg/dL (NEG); Ketones,Urine NEG (NEG); Leukocyte Esterase,Urine NEG /uL (NEG); Mucus,Urine FEW /hpf (0); Nitrate,Urine NEG (NEG); Protein,Urine 100 mg/dL (NEG); Specific Gravity,Urine 1.015 (1.000-1.035); Urine Blood NEG mg/dL (<0.03); Urine Granular Cast 6 /lpf (0); Urine Hyaline Cast 1 /lpf (0-2); Urine RBC 1 /hpf (0-1); Urine Squamous Epithelial Cell 0 /hpf (0-4); Urine Transitional Epi Cells < 1 /hpf (0-2); Urine WBC 22 /hpf (0-4)
--- NOTE | 2020-02-08 05:41 | XRay Report ---
INDICATION: SOB TECHNIQUE: AP portable semiupright chest x-ray COMPARISON: Previous chest x-ray dated 11/01/2019. Previous CT scan dated 02/07/2020 FINDINGS:Right-sided Port-A-Cath with its tip in the superior vena cava Lungs:History of emphysema. Diffuse interstitial abnormality. Findings may be secondary to interstitial edema although atypical infection including viral are possible. There is left lower lobe consolidation and small left pleural effusion. Pneumonia is possible. There is a spiculated right upper lobe density which has been followed on prior CT scans. Heart, vascular:No significant cardiomegaly. Pulmonary vascularity is normal. No pulmonary edema or pulmonary congestion Mediastinum, kvng:No mediastinal widening. No hilar mass Pleura:Small left pleural effusion Skeletal:Negative. IMPRESSION: 1. Diffuse interstitial infiltrates may represent interstitial pulmonary edema 2. Left lower lobe volume loss or consolidation. Small left pleural effusion Interpreted and Authenticated by: Manohar Vazquez 02/08/20
--- NOTE | 2020-02-08 07:02 | Emergency Department Note ---
SOB HPI General Chief Complaint: Shortness of Breath/Dyspnea Stated Complaint: sob Time Seen by Provider: 02/08/20 03:05 Source: EMS Mode of arrival: EMS Limitations: physical limitation History of Present Illness HPI Narrative: This 89-year-old caucasion female comes in by EMS with shortness of breath for the last 30 minutes and a temperature measured by EMS up to 103. She has had labored breathing. She is on oxygen at 6 L/min. No described chest pain or vomiting. Has had some coughing. Has had nebulizer treatment at home as well as 1 in route. She is accompanied by her daughter today. Related Data Home Medications Medication Instructions Recorded Confirmed hydroxyurea 500 mg capsule 500 mg PO QDAY cap 02/28/15 01/23/20 b complex liquid PO QDAY 11/27/19 01/23/20 eye drops #1 ea 01/23/20 01/23/20 fluticasone fur. 100 mcg-umeclid 1 inh INHALATION QDAY 01/23/20 01/23/20 62.5 mcg-vilant 25 mcg inhalat.powder Previous Rx's Medication Instructions Recorded lisinopril 10 mg tablet 10 mg PO QDAY #90 tab 01/31/19 albuterol sulfate 90 mcg/actuation 2 puff INHALATION Q6H PRN #18 g 11/27/19 aerosol inhaler ipratropium 0.5 mg-albuterol 3 mg 3 ml INHALATION Q4H PRN #90 ml 11/29/19 (2.5 mg base)/3 mL nebulization soln O2 concentrator #1 ea 02/07/20 Walker with front basket #1 ea 02/07/20 Allergies Allergy/AdvReac Type Severity Reaction Status Date / Time No Known Drug Allergies Allergy Verified 01/08/20 14:23 Review of Systems ROS ROS Narrative: Narrative: PFSH Narrative Patient History Narrative: Narrative: Medical/Surgical/Family History All Active Problems (Updated 02/08/20 @ 07:27 by Messi Mansfield DO) Left lower lobe pneumonia (Acute) Alkaline phosphatase elevation (Acute) Abnormal ECG (Acute) Nocturnal hypoxia (Acute) Anemia (Acute) Bronchiectasis (Chronic) Lung nodule (Acute) Murmur, cardiac (Chronic) Dyspnea (Chronic) COPD (chronic obstructive pulmonary disease) (Chronic) Anemia in chronic illness (Acute) Hypotension (Acute) History of cancer (Acute) Vitamin D deficiency disease (Chronic) Chronic kidney disease, stage III (moderate) (Chronic) Polycythemia vera (Chronic) Hyperlipidemia (Chronic) History of intravascular stent placement (Chronic) History of intravascular stent placement (Chronic) Hypertension, essential (Chronic) Medical History (Updated 02/08/20 @ 07:27 by Messi Mansfield DO) Abnormal finding in urine (Resolved) Leuk esterase and nitrite positive, but pt asymptomatic, high epi cells, no indication to treat yet. 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 Surgical History (Updated 12/28/19 @ 09:27 by Rosanne Severino) History of esophagogastroduodenoscopy (EGD) (Acute ~12/19/19) History of intravascular stent placement (Chronic) 2007 Neck History of intravascular stent placement (Chronic) 2013 Chest Family History Brother, age 68 Father, age 79 Mother, age 85 Essential hypertension Mother Heart failure Mother Arthritis Mother Leukemia Father Emphysema of lung Brother COPD (chronic obstructive pulmonary disease) Brother Pacemaker Father Social History Smoking Status: Former smoker Alcohol Intake Frequency: holiday/special occasion only Substance Use: does not use Exam Narrative Narrative: Narrative: General Limitations: physical limitation General appearance: alert, malaise, nontoxic and sleepy Head Head: atraumatic and normocephalic Eye Eye: Present normal appearance, PERRL and EOMI ENT ENT: Present normal oropharynx and mucous membranes dry Neck Neck: Present trachea midline; Absent lymphadenopathy and thyromegaly Chest Chest: Present symmetric chest wall rise Respiratory Respiratory: Present rales/crackles (Multiple moderate two quarters throughout lung foster posteriorly.); Absent respiratory distress, wheezes, stridor, accessory muscle use and prolonged expiratory phase Cardiovascular Cardiovascular: Present regular rate and tachycardia; Absent systolic murmur and diastolic murmur Adbominal Abdominal: Present soft; Absent distention, tenderness, guarding, rebound, rigidity, organomegaly and mass Extremities Extremities: Absent pedal edema, pretibial edema, calf tenderness and cyanosis Back Back: Neurological Neurological: Present alert and oriented X3 Psychiatric Psychiatric: Present normal affect and serious; Absent depressed, agitated, anxious and poor eye contact Skin Skin: Present cool and dry; Absent cyanosis and pallor Course Vital Signs Vital signs: Vital Signs Temperature 99.1 F H 02/08/20 02:23 Pulse Rate 134 H 02/08/20 02:23 Respiratory Rate 41 H 02/08/20 02:23 Blood Pressure 185/96 02/08/20 02:23 Pulse Oximetry (%) 95 02/08/20 02:23 Temperature 95.8 F L 02/08/20 08:07 Pulse Rate 59 L 02/08/20 08:07 Respiratory Rate 15 02/08/20 08:07 Blood Pressure 120/57 02/08/20 08:07 Pulse Oximetry (%) 100 02/08/20 08:07 MDM MDM Narrative Medical decision making narrative: 2:45 AM approximately - interviewed and examined. Acute shortness of breath with significantly elevated temperature and dyspnea with some respiratory effort and hypoxia more than usual. Will give DuoNeb and labs and imaging, blood cultures. Rule out cardiovascular and pulmonary specific causes. Urinary peterson with temp probe placed. EKG demonstrates tachycardia with possible repolarization abnormalities and some lateral leads suggestive of ischemia. After her nebulizer treatments her lungs seem to improve quite significantly. She was able to be weaned back down slowly over the subsequent hour down to her usual 2 L and she was able to rest peacefully. This may also have coincided with her temperature returning to normal. Heart rate went from around 130 on the initial EKG into the 85-90 range. Labs came back with elevated white count at 29.5. Persistent similar anemia. Mildly elevated platelet count. Electrolytes not very remarkable. CMP fairly unremarkable except for elevated alkaline phosphatase again over 200. Proc alcitonin significantly elevated at 1.23. Chest x-ray results: 1. Diffuse interstitial infiltrates may represent interstitial pulmonary edema. 2. Left lower lobe volume loss or consolidation. Small left pleural effusion 4:35 AM - repeat EKG was done after seeming change in appearance noted. There is deep inverted T waves in leads V2 and V3 with biphasic in V4, II, III and aVF these demonstrate some change but it is also slower heart rate at 83. 7:15 AM - second troponin finally comes back. It is 0.09 where the first was 0.06. I will discuss with hospitalist admission for her pneumonia. 7:51 AM - conversation with Dr. Matthews, hospitalist with agreement to accept this patient inpatient care. COVID testing ordered. Lab Data Result diagrams: 02/08/20 02:50 02/08/20 02:50 Labs: Lab Results 02/08/20 02/08/20 02/08/20 Range/Units 02:50 02:50 02:50 WBC 29.5 H (4.50-11.00) K/mcL RBC 3.27 L (3.59-5.38) M/mcL Hgb 9.7 L (11.2-15.7) g/dL Hct 32.8 L (34.1-44.9) % MCV 100.3 H (80.0-100.0) fL MCH 29.7 (26.0-34.0) pg MCHC 29.6 L (31.0-36.0) g/dL RDW 16.9 H (11.5-14.5) % Plt Count 545 H (140-440) K/mcL MPV 10.7 H (7.4-10.4) fL Total Counted 100 Seg Neutrophils % 95 H (38-78) % Band Neutrophils % 1 (0-10) % Lymphocytes % 1 L (15-49) % Monocytes % (Manual) 2 (1-12) % Basophils % (Manual) 1 (0-2) % Platelet Estimate Increased (NORMAL) RBC Morphology Abnorm A (NORMAL) Anisocytosis 1+ A (NONE SEEN) Macrocytosis 1+ A (NONE SEEN) ABG Methemoglobin (0.4-1.5) % VBG pH (7.32-7.42) U VBG pCO2 (41.0-51.0) mmHg VBG pO2 (25-40) mmHg VBG HCO3 (24.0-28.0) mmol/L VBG Total CO2 (25.0-29.0) mmol/L VBG O2 Saturation (40.0-70.0) % VBG Base Excess (-2.0-2.0) VBG Lactic Acid 1.3 (0.5-2.0) mmol/L Carboxyhemoglobin (0.0-1.5) % THgb Total Hemoglobin (12.0-15.0) gm/dL O2 Delivery Level Sodium 136 (133-145) mmol/L Potassium 4.2 (3.3-5.1) mmol/L Chloride 98 (96-108) mmol/L Carbon Dioxide 25 (22-30) mmol/L Anion Gap 13.0 (8-16) BUN 26 H (8-23) mg/dl Creatinine 1.0 (0.6-1.1) mg/dl GFR Calculation 51 Glucose 233 H (70-105) mg/dL Calcium 9.1 (8.6-10.4) mg/dl Total Bilirubin 0.9 (0.0-1.0) mg/dL AST 26 (0-37) U/l ALT 15 (0-40) U/l Alkaline Phosphatase 268 H (39-117) U/L Troponin T (0-0.03) ng/ml Total Protein 6.5 (5.9-8.4) gm/dL Albumin 3.1 L (3.2-5.2) gm/dL Globulin 3.4 (2.2-3.7) gm/dL Albumin/Globulin Ratio 0.9 L (1.0-2.3) Procalcitonin (<0.10) ng/mL Urine Color Urine Appearance Urine pH (5.0-9.0) Ur Specific [place] (1.000-1.035) Urine Protein (NEG) mg/dL Urine Glucose (UA) (NEG) mg/dL Urine Ketones (NEG) mg/dL Urine Occult Blood (<0.03) mg/dL Urine Nitrate (NEG) Urine Bilirubin (NEG) mg/dL Urine Urobilinogen (NEG) mg/dL Ur Leukocyte Esterase (NEG) /uL Urine RBC (0-1) /hpf Urine WBC (0-4) /hpf Ur Squamous Epith Cells (0-4) /hpf Ur Transition Epith Cell (0-2) /hpf Urine Bacteria (0) /hpf Hyaline Casts (0-2) /lpf Granular Casts (0) /lpf Urine Mucus (0) /hpf Ur Culture Indicated? 02/08/20 02/08/20 02/08/20 Range/Units 02:50 02:50 03:40 WBC (4.50-11.00) K/mcL RBC (3.59-5.38) M/mcL Hgb (11.2-15.7) g/dL Hct (34.1-44.9) % MCV (80.0-100.0) fL MCH (26.0-34.0) pg MCHC (31.0-36.0) g/dL RDW (11.5-14.5) % Plt Count (140-440) K/mcL MPV (7.4-10.4) fL Total Counted Seg Neutrophils % (38-78) % Band Neutrophils % (0-10) % Lymphocytes % (15-49) % Monocytes % (Manual) (1-12) % Basophils % (Manual) (0-2) % Platelet Estimate (NORMAL) RBC Morphology (NORMAL) Anisocytosis (NONE SEEN) Macrocytosis (NONE SEEN) ABG Methemoglobin (0.4-1.5) % VBG pH (7.32-7.42) U VBG pCO2 (41.0-51.0) mmHg VBG pO2 (25-40) mmHg VBG HCO3 (24.0-28.0) mmol/L VBG Total CO2 (25.0-29.0) mmol/L VBG O2 Saturation (40.0-70.0) % VBG Base Excess (-2.0-2.0) VBG Lactic Acid (0.5-2.0) mmol/L Carboxyhemoglobin (0.0-1.5) % THgb Total Hemoglobin (12.0-15.0) gm/dL O2 Delivery Level Sodium (133-145) mmol/L Potassium (3.3-5.1) mmol/L Chloride (96-108) mmol/L Carbon Dioxide (22-30) mmol/L Anion Gap (8-16) BUN (8-23) mg/dl Creatinine (0.6-1.1) mg/dl GFR Calculation Glucose (70-105) mg/dL Calcium (8.6-10.4) mg/dl Total Bilirubin (0.0-1.0) mg/dL AST (0-37) U/l ALT (0-40) U/l Alkaline Phosphatase (39-117) U/L Troponin T 0.06 H* (0-0.03) ng/ml Total Protein (5.9-8.4) gm/dL Albumin (3.2-5.2) gm/dL Globulin (2.2-3.7) gm/dL Albumin/Globulin Ratio (1.0-2.3) Procalcitonin 1.23 (<0.10) ng/mL Urine Color Yellow Urine Appearance Clear Urine pH 7.0 (5.0-9.0) Ur Specific [place] 1.015 (1.000-1.035) Urine Protein 100 A (NEG) mg/dL Urine Glucose (UA) 50 A (NEG) mg/dL Urine Ketones Neg (NEG) mg/dL Urine Occult Blood Neg (<0.03) mg/dL Urine Nitrate Neg (NEG) Urine Bilirubin Neg (NEG) mg/dL Urine Urobilinogen 2.0 A (NEG) mg/dL Ur Leukocyte Esterase Neg (NEG) /uL Urine RBC 1 (0-1) /hpf Urine WBC 22 H (0-4) /hpf Ur Squamous Epith Cells 0 (0-4) /hpf Ur Transition Epith Cell < 1 (0-2) /hpf Urine Bacteria 0 (0) /hpf Hyaline Casts 1 (0-2) /lpf Granular Casts 6 H (0) /lpf Urine Mucus Few (0) /hpf Ur Culture Indicated? Yes 02/08/20 02/08/20 Range/Units 03:45 05:30 WBC (4.50-11.00) K/mcL RBC (3.59-5.38) M/mcL Hgb (11.2-15.7) g/dL Hct (34.1-44.9) % MCV (80.0-100.0) fL MCH (26.0-34.0) pg MCHC (31.0-36.0) g/dL RDW (11.5-14.5) % Plt Count (140-440) K/mcL MPV (7.4-10.4) fL Total Counted Seg Neutrophils % (38-78) % Band Neutrophils % (0-10) % Lymphocytes % (15-49) % Monocytes % (Manual) (1-12) % Basophils % (Manual) (0-2) % Platelet Estimate (NORMAL) RBC Morphology (NORMAL) Anisocytosis (NONE SEEN) Macrocytosis (NONE SEEN) ABG Methemoglobin 0.3 L (0.4-1.5) % VBG pH 7.35 (7.32-7.42) U VBG pCO2 46.9 (41.0-51.0) mmHg VBG pO2 132 H (25-40) mmHg VBG HCO3 25.1 (24.0-28.0) mmol/L VBG Total CO2 26.6 (25.0-29.0) mmol/L VBG O2 Saturation 90.8 H (40.0-70.0) % VBG Base Excess -0.6 (-2.0-2.0) VBG Lactic Acid (0.5-2.0) mmol/L Carboxyhemoglobin 7.8 H (0.0-1.5) % THgb Total Hemoglobin 8.6 L (12.0-15.0) gm/dL O2 Delivery Level Not Reportable Sodium (133-145) mmol/L Potassium (3.3-5.1) mmol/L Chloride (96-108) mmol/L Carbon Dioxide (22-30) mmol/L Anion Gap (8-16) BUN (8-23) mg/dl Creatinine (0.6-1.1) mg/dl GFR Calculation Glucose (70-105) mg/dL Calcium (8.6-10.4) mg/dl Total Bilirubin (0.0-1.0) mg/dL AST (0-37) U/l ALT (0-40) U/l Alkaline Phosphatase (39-117) U/L Troponin T 0.09 H* (0-0.03) ng/ml Total Protein (5.9-8.4) gm/dL Albumin (3.2-5.2) gm/dL Globulin (2.2-3.7) gm/dL Albumin/Globulin Ratio (1.0-2.3) Procalcitonin (<0.10) ng/mL Urine Color Urine Appearance Urine pH (5.0-9.0) Ur Specific [place] (1.000-1.035) Urine Protein (NEG) mg/dL Urine Glucose (UA) (NEG) mg/dL Urine Ketones (NEG) mg/dL Urine Occult Blood (<0.03) mg/dL Urine Nitrate (NEG) Urine Bilirubin (NEG) mg/dL Urine Urobilinogen (NEG) mg/dL Ur Leukocyte Esterase (NEG) /uL Urine RBC (0-1) /hpf Urine WBC (0-4) /hpf Ur Squamous Epith Cells (0-4) /hpf Ur Transition Epith Cell (0-2) /hpf Urine Bacteria (0) /hpf Hyaline Casts (0-2) /lpf Granular Casts (0) /lpf Urine Mucus (0) /hpf Ur Culture Indicated? Discharge Plan Patient/Caregiver Discharge Instructions Pt seen by [facility] [employer] [facility]/PA only: No Clinical Impression: Alkaline phosphatase elevation, Abnormal ECG Left lower lobe pneumonia Qualifiers: Pneumonia type: due to unspecified organism Qualified Code(s): J18.9 - Pneumon ia, unspecified organism Patient Disposition: Xfer As Inpt ([facility]) Follow up with: Manohar Steiner DO [Primary Care Provider] - Prescriptions: No Action lisinopril 10 mg tablet 10 mg PO QDAY Qty: 90 RF: 3 ipratropium-albuterol 0.5 mg-3 mg(2.5 mg base)/3 mL solution for nebulization 3 ml INHALATION Q4H PRN (Reason: shortness of breath or wheezing) Qty: 90 RF: 0 (DME) Walker with front basket Qty: 1 RF: 0 (DME) O2 concentrator Qty: 1 RF: 0 hydroxyurea 500 mg capsule 500 mg PO QDAY RF: 0 b complex liquid PO QDAY RF: 0 albuterol sulfate [Ventolin HFA] 90 mcg/actuation HFA aerosol inhaler 2 puff INHALATION Q6H PRN (Reason: shortness of breath or wheezing) Qty: 18 RF: 0 Trelegy Ellipta 100-62.5-25 mcg blister with device 1 inh INHALATION QDAY RF: 0 (DME) eye drops Qty: 1 RF: 0
[2020-02-08] MEDS ORDERED: ACETAMINOPHEN 325 MG TABLET PO PRN (11:26)
[2020-02-08] MEDS ORDERED: ALBUTEROL SULFATE 200 PUFF INHALER INH PRN (11:26)
[2020-02-08] MEDS ORDERED: ONDANSETRON 4 MG/2 ML VIAL IV PRN (11:26)
[2020-02-08] MEDS: 0.9 % SODIUM CHLORIDE 10 ML SYRINGE IV SCH ×2 (14:50→20:24)
[2020-02-08] MEDS: DOCUSATE SODIUM 100 MG CAPSULE PO SCH (20:24)
[2020-02-08] MEDS: SENNOSIDES 1 TABLET PO SCH (20:24)
--- NOTE | 2020-02-08 20:26 | Internal Med History&Physical ---
HPI History of Present Illness Patient information: Note initiated : 02/08/20 at 8:20 pm Service Date, if different from initiated Date: [] Patient: Roseann Adamson a 89 y/o F admitted on 02/08/20 for SOB . Chief Complaint: [sob and fever] History of present illness: Ms. Adamson is a 89 year old F presented to [facility] this morning and had sypnea. It lasted for 30 mins and she was tachycardic with fever to 103. She had labored breathing and received nebulizer and O2 6l/min. + cough but no chest pain or nausea. Lives with son. no sick contacts. Pt received nebulizers at home and en route. pt had blood culture and covid test. Imaging. additional nebs given and she improved O2 down to 2lpm and hr from 130 down to 85. Due WBC 29.5 polycythemia vera history, and fever she was admitted. Of not she has and recently saw Dr. Torres for nonrheumatic and determined not a valve repair candidate due to health and dementia. Pt also JAK2 mutation positive Polycythemia Vera and take hydroxyurea. Pt has mod severe and has been somewhat symptomatic in the past. Review of Systems ROS unobtainable: due to mental status (obtainable but judged less reliable.) Constitutional Constitutional: Present fever(s) (pt denied but she had fever in EMD. she did know to recommend I ask someone else.); Absent night sweats Cardiovascular Cardiovascular: Present chest pain with activity (denies pain says heart will beat harder though) and dyspnea; Absent chest pain at rest Respiratory Respiratory: Present cough Gastrointestinal Gastrointestinal: Absent abdominal pain, constipation and diarrhea Genitourinary Genitourinary: Absent dyspareunia, hematuria and urinary urgency Neurological Neurological: Present as per HPI Psychiatric Psychiatric: Present as per HPI PFSH PFSH All Active Problems (Updated 02/08/20 @ 20:42 by Kris Matthews MD) Fever with leukocytosis and leukocyte count greater than or equal to 20,000 (Acute) Aortic stenosis (Acute) Left lower lobe pneumonia (Acute) Alkaline phosphatase elevation (Acute) Abnormal ECG (Acute) Nocturnal hypoxia (Acute) Anemia (Acute) Bronchiectasis (Chronic) Lung nodule (Acute) Murmur, cardiac (Chronic) Dyspnea (Chronic) COPD (chronic obstructive pulmonary disease) (Chronic) Anemia in chronic illness (Acute) Hypotension (Acute) History of cancer (Acute) Vitamin D deficiency disease (Chronic) Chronic kidney disease, stage III (moderate) (Chronic) Polycythemia vera (Chronic) Hyperlipidemia (Chronic) History of intravascular stent placement (Chronic) History of intravascular stent placement (Chronic) Hypertension, essential (Chronic) Medical History (Updated 02/08/20 @ 20:42 by Kris Matthews MD) Abnormal finding in urine (Resolved) Leuk esterase and nitrite positive, but pt asymptomatic, high epi cells, no indication to treat yet. 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 cant exclude completely infection but xray with bilateral findings and left pleural effusion more consistent with CHF Surgical History (Updated 12/28/19 @ 09:27 by Rosanne Severino) History of esophagogastroduodenoscopy (EGD) (Acute ~12/19/19) History of intravascular stent placement (Chronic) 2007 Neck History of intravascular stent placement (Chronic) 2013 Chest Family History Mother , age 85 Arthritis Essential hypertension Heart failure Father , age 79 Leukemia Pacemaker Brother , age 68 COPD (chronic obstructive pulmonary disease) Emphysema of lung Social History (Updated 02/08/20 @ 20:38 by Kris Matthews MD) marital status: other: Children-5 smoking status: Former smoker quit date: 05/07/07 pack-years: 20 smoking status stop date: 03/31/07 alcohol intake frequency: holiday/special occasion only substance use type: does not use additional history: tells me she wants full code. 02/08/20 also tells me doesnt want to try to replace or repair heart valve due to risk. MEDS/ALLERGIES Home Medications and Allergies Home Medications Medication Instructions Recorded Confirmed Type hydroxyurea 500 mg capsule 500 mg PO DAILY cap 02/28/15 02/08/20 History lisinopril 10 mg tablet 10 mg PO QDAY #90 tab 01/31/19 02/08/20 Rx albuterol sulfate 90 mcg/actuation 2 puff INHALATION Q6H PRN #18 g 11/27/19 02/08/20 Rx aerosol inhaler ipratropium 0.5 mg-albuterol 3 mg 3 ml INHALATION Q4H PRN #90 ml 11/29/19 02/08/20 Rx (2.5 mg base)/3 mL nebulization soln O2 concentrator #1 ea 02/07/20 02/08/20 Rx Walker with front basket #1 ea 02/07/20 02/08/20 Rx vit [id number] [B 1 ml SUBLINGUAL DAILY 02/08/20 02/08/20 History Complex] Allergies Allergy/AdvReac Type Severity Reaction Status Date / Time No Known Drug Allergies Allergy Verified 01/08/20 14:23 EXAM Constitutional Vitals: Temp Pulse Resp BP Pulse Ox 97.0 F 59 L 20 110/50 94 02/08/20 20:00 02/08/20 20:00 02/08/20 20:00 02/08/20 20:00 02/08/20 20:00 GEN WDWN thin WF NAD CV RRR occ ectopy there is 3/6 THEO BHA LUSB and radiate to right chest Lungs scant basilar crackles abd soft NTND Calves no tenderness or swelling Pulses 2+ bilat radial and dorsal pedal. Skin warm and dry. Mentation alert and oriented to person [facility], [place] and 2019 but thought was february. DATA Data Completed and Pending Labs on day of discharge: Labs from last 24 hours 02/08/20 02/08/20 02/08/20 09:13 05:30 03:45 WBC RBC Hgb Hct MCV MCH MCHC RDW Plt Count MPV Total Counted Seg Neutrophils % Band Neutrophils % Lymphocytes % Monocytes % (Manual) Basophils % (Manual) Platelet Estimate RBC Morphology Anisocytosis Macrocytosis ABG Methemoglobin 0.3 L VBG pH 7.35 VBG pCO2 46.9 VBG pO2 132 H VBG HCO3 25.1 VBG Total CO2 26.6 VBG O2 Saturation 90.8 H VBG Base Excess -0.6 VBG Lactic Acid Carboxyhemoglobin 7.8 H Total Hemoglobin 8.6 L O2 Delivery Level Not Reportable Sodium Potassium Chloride Carbon Dioxide Anion Gap BUN Creatinine GFR Calculation Glucose Calcium Total Bilirubin AST ALT Alkaline Phosphatase Troponin T 0.09 H* Total Protein Albumin Globulin Albumin/Globulin Ratio Procalcitonin Urine Color Urine Appearance Urine pH Ur Specific Beebe Urine Protein Urine Glucose (UA) Urine Ketones Urine Occult Blood Urine Nitrate Urine Bilirubin Urine Urobilinogen Ur Leukocyte Esterase Urine RBC Urine WBC Ur Squamous Epith Cells Ur Transition Epith Cell Urine Bacteria Hyaline Casts Granular Casts Urine Mucus Ur Culture Indicated? SARS-CoV-2 (PCR) Pending 02/08/20 02/08/20 02/08/20 03:40 02:50 02:50 WBC RBC Hgb Hct MCV MCH MCHC RDW Plt Count MPV Total Counted Seg Neutrophils % Band Neutrophils % Lymphocytes % Monocytes % (Manual) Basophils % (Manual) Platelet Estimate RBC Morphology Anisocytosis Macrocytosis ABG Methemoglobin VBG pH VBG pCO2 VBG pO2 VBG HCO3 VBG Total CO2 VBG O2 Saturation VBG Base Excess VBG Lactic Acid Carboxyhemoglobin Total Hemoglobin O2 Delivery Level Sodium Potassium Chloride Carbon Dioxide Anion Gap BUN Creatinine GFR Calculation Glucose Calcium Total Bilirubin AST ALT Alkaline Phosphatase Troponin T 0.06 H* Total Protein Albumin Globulin Albumin/Globulin Ratio Procalcitonin 1.23 Urine Color Yellow Urine Appearance Clear Urine pH 7.0 Ur Specific Beebe 1.015 Urine Protein 100 A Urine Glucose (UA) 50 A Urine Ketones Neg Urine Occult Blood Neg Urine Nitrate Neg Urine Bilirubin Neg Urine Urobilinogen 2.0 A Ur Leukocyte Esterase Neg Urine RBC 1 Urine WBC 22 H Ur Squamous Epith Cells 0 Ur Transition Epith Cell < 1 Urine Bacteria 0 Hyaline Casts 1 Granular Casts 6 H Urine Mucus Few Ur Culture Indicated? Yes SARS-CoV-2 (PCR) 02/08/20 02/08/20 02/08/20 02:50 02:50 02:50 WBC 29.5 H RBC 3.27 L Hgb 9.7 L Hct 32.8 L MCV 100.3 H MCH 29.7 MCHC 29.6 L RDW 16.9 H Plt Count 545 H MPV 10.7 H Total Counted 100 Seg Neutrophils % 95 H Band Neutrophils % 1 Lymphocytes % 1 L Monocytes % (Manual) 2 Basophils % (Manual) 1 Platelet Estimate Increased RBC Morphology Abnorm A Anisocytosis 1+ A Macrocytosis 1+ A ABG Methemoglobin VBG pH VBG pCO2 VBG pO2 VBG HCO3 VBG Total CO2 VBG O2 Saturation VBG Base Excess VBG Lactic Acid 1.3 Carboxyhemoglobin Total Hemoglobin O2 Delivery Level Sodium 136 Potassium 4.2 Chloride 98 Carbon Dioxide 25 Anion Gap 13.0 BUN 26 H Creatinine 1.0 GFR Calculation 51 Glucose 233 H Calcium 9.1 Total Bilirubin 0.9 AST 26 ALT 15 Alkaline Phosphatase 268 H Troponin T Total Protein 6.5 Albumin 3.1 L Globulin 3.4 Albumin/Globulin Ratio 0.9 L Procalcitonin Urine Color Urine Appearance Urine pH Ur Specific Beebe Urine Protein Urine Glucose (UA) Urine Ketones Urine Occult Blood Urine Nitrate Urine Bilirubin Urine Urobilinogen Ur Leukocyte Esterase Urine RBC Urine WBC Ur Squamous Epith Cells Ur Transition Epith Cell Urine Bacteria Hyaline Casts Granular Casts Urine Mucus Ur Culture Indicated? SARS-CoV-2 (PCR) A/P Assessment and plan (1) Aortic stenosis: Status: Acute Comment: pt will be managed carefully to prevent fluid overload. monitor for chest pain or dyspnea. None since admission (2) Polycythemia vera: Status: Chronic Comment: Thiago 2 mutation positive, follows with Dr Fontenot, on hydroxyurea 500mg 6 days a week likely affecting her baseline WBC. cant exclude completely infection but xray with bilateral findings and left pleural effusion more consistent with CHF (3) Fever with leukocytosis and leukocyte count greater than or equal to 20,000: Status: Acute Comment: blood culture and covid test pending. pt now off oxygen spontaneously. consider workup for PE if further resp symptoms. Time Spent With Patient Time: Total time spent is greater than 50% in coordination of care (as documented) at patient's floor/unit and/or counseling patient: 60 mins
[2020-02-09] MEDS: 0.9 % SODIUM CHLORIDE 10 ML SYRINGE IV SCH ×3 (05:53→23:28)
[2020-02-09 06:56] LABS: Basophils # (Auto) 0.03 K/mcL (0.00-0.30); Basophils % (Auto) 0.3 % (0.0-2.0); Eosinophils # (Auto) 0.02 K/mcL (0.00-0.70); Eosinophils % (Auto) 0.2 % (0.0-7.0); Granulocytes % (Auto) 87.2 % (38.0-78.0); Hematocrit 26.2 % (34.1-44.9); Hemoglobin 7.6 g/dL (11.2-15.7); Lymphocytes # (Auto) 0.36 K/mcL (1.50-4.80); Lymphocytes % (Auto) 3.7 % (15.5-49.0); Mean Platelet Volume 10.6 fL (7.4-10.4); Monocytes # (Auto) 0.85 K/mcL (0.10-0.90); Monocytes % (Auto) 8.6 % (1.0-12.0); Platelet Count 256 K/mcL (140-440); RBC 2.62 M/mcL (3.59-5.38); Red Cell Distribution Width 16.8 % (11.5-14.5); WBC 9.8 K/mcL (4.50-11.00)
[2020-02-09 07:21] LABS: Blood Urea Nitrogen 25 mg/dl (8-23); Calcium 8.8 mg/dl (8.6-10.4); Carbon Dioxide 24 mmol/L (22-30); Chloride 105 mmol/L (96-108); Glomerular Filtration Rate 66; Glucose 100 mg/dL (70-105)
[2020-02-09] MEDS: VITAMIN B COMPLEX 1 CAPSULE PO SCH (08:23)
[2020-02-09] MEDS: LISINOPRIL 10 MG TABLET PO SCH (08:23)
[2020-02-09] MEDS: DOCUSATE SODIUM 100 MG CAPSULE PO SCH ×2 (08:23→20:29)
[2020-02-09] MEDS: HYDROXYUREA 500 MG CAPSULE PO SCH (08:23)
[2020-02-09] MEDS: IPRATROPIUM/ALBUTEROL 3 ML AMPUL.NEB NEB PRN ×2 (09:55→20:43)
[2020-02-09] MEDS ORDERED: AZITHROMYCIN 500 MG in DEXTROSE 5% IN WATER 250 ML IV ONE (10:00)
--- NOTE | 2020-02-09 19:10 | Internal Med Progress Note ---
SUBJECTIVE Subjective Patient information: Note initiated : 02/09/20 at 7:04 pm Service Date, if different from initiated Date: [] Patient: Rosenan Adamson 89 y/o F admitted on 02/08/20 for SOB . Chief Complaint: sob and hypoxemia initial sob and fever now resolved. Covid test negative. Pt says aside from mild sob feels ok Family POA directed DNR status so was changed to DNR today. Pt not oriented to her illness. Constitutional Vitals: Vital Signs Temp Pulse Resp BP Pulse Ox 97.6 F 64 22 124/62 96 02/09/20 16:00 02/09/20 16:00 02/09/20 16:00 02/09/20 16:00 02/09/20 16:00 Period Temp Pulse Resp BP Sys/Cervantes Pulse Ox Last 24 Hr 96.5 F-97.9 F 20 12 110-140/50-70 94-99 Intake and Output 02/09/20 02/09/20 02/09/20 05:59 13:59 21:59 Intake Total 180 270 200 Output Total 200 325 Balance -20 270 -125 Weight 41.504 kg Patient Weight 02/10/20 05:59 Weight 41.504 kg GEN WDWN WF NAD very thin CV RRR with 4/6 THEO BHA RUSB radiating to right chest. Lungs prolonged expiratory phase. Crackles in base only Abd soft NTND Calves no edema skin turgor decreased Intake & Output: Intake & Output 02/09/20 02/09/20 02/09/20 05:59 13:59 21:59 Intake Total 180 270 200 Output Total 200 325 Balance -20 270 -125 Weight 41.504 kg Intake: Oral 180 270 200 Output: Urine Catheter Amount 200 325 Other: Meal Lunch Percent of Meal Consumed 10% Feeding Ability Assist with Tray Set Up Urine Appearance Sediment Sediment Uretheral (Peterson) Cloudy Sediment Urine Color Bright Yellow Bright Yellow Uretheral (Peterson) Dark Yellow Urine Odor Normal Stool Size Moderate Stool Color Brown Stool Consistency Soft # Bowel Movements 1 OBJ DATA Labs CBC & Chem 7: 02/09/20 05:14 02/09/20 05:14 Labs: Abnormal Lab Results 02/09/20 02/09/20 02/08/20 05:14 05:14 05:30 WBC RBC 2.62 L Hgb 7.6 L Hct 26.2 L MCV MCHC 29.0 L RDW 16.8 H Plt Count MPV 10.6 H Gran % 87.2 H Lymph % (Auto) 3.7 L Gran # 8.58 H Lymph # (Auto) 0.36 L Seg Neutrophils % Lymphocytes % RBC Morphology Anisocytosis Macrocytosis ABG Methemoglobin VBG pO2 VBG O2 Saturation Carboxyhemoglobin Total Hemoglobin BUN 25 H Glucose Alkaline Phosphatase Troponin T 0.09 H* Albumin Albumin/Globulin Ratio Urine Protein Urine Glucose (UA) Urine Urobilinogen Urine WBC Granular Casts 02/08/20 02/08/20 02/08/20 03:45 03:40 02:50 WBC RBC Hgb Hct MCV MCHC RDW Plt Count MPV Gran % Lymph % (Auto) Gran # Lymph # (Auto) Seg Neutrophils % Lymphocytes % RBC Morphology Anisocytosis Macrocytosis ABG Methemoglobin 0.3 L VBG pO2 132 H VBG O2 Saturation 90.8 H Carboxyhemoglobin 7.8 H Total Hemoglobin 8.6 L BUN Glucose Alkaline Phosphatase Troponin T 0.06 H* Albumin Albumin/Globulin Ratio Urine Protein 100 A Urine Glucose (UA) 50 A Urine Urobilinogen 2.0 A Urine WBC 22 H Granular Casts 6 H 02/08/20 02/08/20 02:50 02:50 WBC 29.5 H RBC 3.27 L Hgb 9.7 L Hct 32.8 L MCV 100.3 H MCHC 29.6 L RDW 16.9 H Plt Count 545 H MPV 10.7 H Gran % Lymph % (Auto) Gran # Lymph # (Auto) Seg Neutrophils % 95 H Lymphocytes % 1 L RBC Morphology Abnorm A Anisocytosis 1+ A Macrocytosis 1+ A ABG Methemoglobin VBG pO2 VBG O2 Saturation Carboxyhemoglobin Total Hemoglobin BUN 26 H Glucose 233 H Alkaline Phosphatase 268 H Troponin T Albumin 3.1 L Albumin/Globulin Ratio 0.9 L Urine Protein Urine Glucose (UA) Urine Urobilinogen Urine WBC Granular Casts Meds: Medications Acetaminophen (Tylenol) 650 mg PO Q6HP PRN; Protocol PRN Reason: Per Pain Protocol/Fever > 101 Albuterol Sulfate (Ventolin) 2 puff INH Q6HP PRN PRN Reason: shortness of breath or wheezin Albuterol/Ipratropium (Duoneb) 3 ml NEB Q4HP PRN PRN Reason: shortness of breath or wheezin Last Admin: 02/09/20 09:55 Dose: 3 ml Documented by: Azithromycin (Zithromax) 500 mg PO DAILY [facility] Stop: 02/13/20 09:01 Docusate Sodium (Colace) 100 mg PO BID [facility] Last Admin: 02/09/20 08:23 Dose: 100 mg Documented by: Hydroxyurea (Hydrea) 500 mg PO [id number] [facility] Last Admin: 02/09/20 08:23 Dose: 500 mg Documented by: Lisinopril (Zestril) 10 mg PO QDAY [facility] Last Admin: 02/09/20 08:23 Dose: 10 mg Documented by: Ondansetron HCl (Zofran) 4 mg IV Q6HP PRN PRN Reason: Nausea And Vomiting Senna (Senokot) 2 tab PO HS [facility] Last Admin: 02/08/20 20:24 Dose: 2 tab Documented by: Sodium Chloride (Saline Flush) 10 ml IV Q8 [facility] Last Admin: 02/09/20 14:40 Dose: 10 ml Documented by: Vitamin B Complex (Vitamin B Complex) 1 cap PO DAILY [facility] Last Admin: 02/09/20 08:23 Dose: 1 cap Documented by: ABG Interpretation ABG results: 02/08/20 03:45 ABG Methemoglobin 0.3 L VBG pH 7.35 VBG pCO2 46.9 VBG pO2 132 H VBG HCO3 25.1 VBG Total CO2 26.6 VBG O2 Saturation 90.8 H VBG Base Excess -0.6 A/P Assessment and plan (1) Fever with leukocytosis and leukocyte count greater than or equal to 20,000: Status: Acute Comment: blood culture and covid test pending. pt now off oxygen spontaneously. consider workup for PE if further resp symptoms. improved wbc normalized on its own. was started on Azithro pending clinical course discontinue peterson and increase activity (2) Aortic stenosis: Status: Acute Comment: pt will be managed carefully to prevent fluid overload. monitor for chest pain or dyspnea. None since admission pt with progressive medical decline and POA directs DNR. (3) Polycythemia vera: Status: Chronic Comment: Thiago 2 mutation positive, follows with Dr Fontenot, on hydroxyurea 500mg 6 days a week likely affecting her baseline WBC. cant exclude completely infection but xray with bilateral findings and left pleural effusion more consistent with CHF diuresed remove peterson. Time Spent With Patient Time: Total time spent is greater than 50% in coordination of care (as documented) at patient's floor/unit and/or counseling patient: 25 mins
[2020-02-09] MEDS ORDERED: FUROSEMIDE 20 MG TABLET PO ONE (19:11)
[2020-02-09] MEDS: SENNOSIDES 1 TABLET PO SCH (20:29)
[2020-02-10] MEDS: 0.9 % SODIUM CHLORIDE 10 ML SYRINGE IV SCH ×3 (06:16→21:49)
[2020-02-10] MEDS: FUROSEMIDE 40 MG/4 ML VIAL IV SCH (08:05)
[2020-02-10] MEDS: DOCUSATE SODIUM 100 MG CAPSULE PO SCH ×2 (08:06→21:49)
[2020-02-10] MEDS: LISINOPRIL 10 MG TABLET PO SCH (08:06)
[2020-02-10] MEDS: VITAMIN B COMPLEX 1 CAPSULE PO SCH (08:06)
[2020-02-10] MEDS: AZITHROMYCIN 250 MG TABLET PO SCH (08:06)
[2020-02-10] MEDS: HYDROXYUREA 500 MG CAPSULE PO SCH (10:34)
--- NOTE | 2020-02-10 11:16 | XRay Report ---
INDICATION: follow up CHF vs pneumonia after diuresis TECHNIQUE: PA and lateral upright chest x-ray COMPARISON: Previous chest x-ray dated 02/08/2020 FINDINGS: No change in right-sided Port-A-Cath Lungs: Lungs are improved with decreased interstitial edema. There is persistent left basilar density which may represent a benign volume loss or pneumonia. There are bilateral pleural effusions, left larger than right. Heart, vascular: No significant cardiomegaly. Vascularity is improved with decreased pulmonary congestion and interstitial edema Mediastinum, kvng: No mediastinal widening. No hilar mass Pleura:Bilateral pleural effusions, left larger than right Thoracic spine, ribs: No thoracic compression fracture. Ribs are negative. No fracture. No lytic lesion IMPRESSION: 1. Improved interstitial pulmonary edema 2. Bilateral effusions, left larger than right 3. Persistent left lower lobe pulmonary parenchymal density consistent with volume loss or pneumonia Interpreted and Authenticated by: Manohar Vazquez 02/10/20
[2020-02-10] MEDS ORDERED: HYDROmorphone 0.5 MG/0.5 ML SYRINGE IV PRN (11:24)
[2020-02-10] MEDS ORDERED: NITROGLYCERIN 0.4 MG TAB.SUBL SL PRN (11:24)
[2020-02-10] MEDS ORDERED: IRON SUCROSE COMPLEX 100 MG/5 ML VIAL IV ONE (14:52)
--- NOTE | 2020-02-10 15:02 | Internal Med Progress Note ---
SUBJECTIVE Subjective Patient information: Note initiated : 02/10/20 at 2:58 pm Service Date, if different from initiated Date: [] Patient: Roseann Adamson 89 y/o F admitted on 02/08/20 for SOB . Chief Complaint: fever and respiratory distress Spoke with pts son whom she lives with. He says that pt has been volume depleted and required a port just for blood draws. They had not been able to draw blood for 7 months. Pt has had aortic stenosis for fci and recent visit with Dr. Torres and determined given dementia and poor health was not a candidate for valvuloplasty or replacement for . Admitted with fever and resp distress treated with nebs and oxygen on day of admission. Since then afebrile. Today had resp distress and wheezing treated with diuretics and did well. Pt comfortably breathing on baseline 2lpm oxygen now. Constitutional Vitals: Vital Signs Temp Pulse Resp BP Pulse Ox 98.3 F 77 20 140/71 96 02/10/20 12:00 02/10/20 12:00 02/10/20 12:00 02/10/20 12:00 02/10/20 12:00 Period Temp Pulse Resp BP Sys/Cervantes Pulse Ox Last 24 Hr 97.6 F-99.3 F 64-78 20- 112-181/61-79 85-99 Intake and Output 02/10/20 02/10/20 02/10/20 05:59 13:59 21:59 Intake Total 240 120 30 Output Total 1400 1200 650 Balance -1160 -8110 -374 Gen WD thin nearly cachectic WF in NAD sleepin laying on left side CV RRR Lungs CTA bilat no rales or wheezes ABd soft NTND Calves no edema Skin warm and dry decreased skin turgor and muscle tone. ment alert and oriented to person place, Intake & Output: Intake & Output 02/10/20 02/10/20 02/10/20 05:59 13:59 21:59 Intake Total 240 120 30 Output Total 1400 1200 650 Balance -1160 -8207 -183 Intake: Oral 240 120 30 Output: Urine Catheter Amount 1400 1200 650 Other: Meal Lunch Percent of Meal Consumed 25% Feeding Ability Independent Urine Appearance Clear Clear Clear Uretheral (Peterson) Clear Clear Sediment Urine Color Bright Yellow Bright Yellow Pale Straw Uretheral (Peterson) Pale Pale Straw Straw Urine Odor Normal Normal Normal Uretheral (Peterson) Normal Normal Stool Size Moderate Moderate Stool Color Brown Stool Consistency Formed # Bowel Movements 2 1 # of times incontinent of 2 1 Bowels OBJ DATA Labs CBC & Chem 7: 02/09/20 05:14 02/09/20 05:14 Labs: Abnormal Lab Results 02/09/20 02/09/20 02/08/20 05:14 05:14 05:30 WBC RBC 2.62 L Hgb 7.6 L Hct 26.2 L MCV MCHC 29.0 L RDW 16.8 H Plt Count MPV 10.6 H Gran % 87.2 H Lymph % (Auto) 3.7 L Gran # 8.58 H Lymph # (Auto) 0.36 L Seg Neutrophils % Lymphocytes % RBC Morphology Anisocytosis Macrocytosis ABG Methemoglobin VBG pO2 VBG O2 Saturation Carboxyhemoglobin Total Hemoglobin BUN 25 H Glucose Alkaline Phosphatase Troponin T 0.09 H* Albumin Albumin/Globulin Ratio Urine Protein Urine Glucose (UA) Urine Urobilinogen Urine WBC Granular Casts 02/08/20 02/08/20 02/08/20 03:45 03:40 02:50 WBC RBC Hgb Hct MCV MCHC RDW Plt Count MPV Gran % Lymph % (Auto) Gran # Lymph # (Auto) Seg Neutrophils % Lymphocytes % RBC Morphology Anisocytosis Macrocytosis ABG Methemoglobin 0.3 L VBG pO2 132 H VBG O2 Saturation 90.8 H Carboxyhemoglobin 7.8 H Total Hemoglobin 8.6 L BUN Glucose Alkaline Phosphatase Troponin T 0.06 H* Albumin Albumin/Globulin Ratio Urine Protein 100 A Urine Glucose (UA) 50 A Urine Urobilinogen 2.0 A Urine WBC 22 H Granular Casts 6 H 02/08/20 02/08/20 02:50 02:50 WBC 29.5 H RBC 3.27 L Hgb 9.7 L Hct 32.8 L MCV 100.3 H MCHC 29.6 L RDW 16.9 H Plt Count 545 H MPV 10.7 H Gran % Lymph % (Auto) Gran # Lymph # (Auto) Seg Neutrophils % 95 H Lymphocytes % 1 L RBC Morphology Abnorm A Anisocytosis 1+ A Macrocytosis 1+ A ABG Methemoglobin VBG pO2 VBG O2 Saturation Carboxyhemoglobin Total Hemoglobin BUN 26 H Glucose 233 H Alkaline Phosphatase 268 H Troponin T Albumin 3.1 L Albumin/Globulin Ratio 0.9 L Urine Protein Urine Glucose (UA) Urine Urobilinogen Urine WBC Granular Casts Meds: Medications Acetaminophen (Tylenol) 650 mg PO Q6HP PRN; Protocol PRN Reason: Per Pain Protocol/Fever > 101 Albuterol Sulfate (Ventolin) 2 puff INH Q6HP PRN PRN Reason: shortness of breath or wheezin Albuterol/Ipratropium (Duoneb) 3 ml NEB Q4HP PRN PRN Reason: shortness of breath or wheezin Last Admin: 02/09/20 20:43 Dose: 3 ml Documented by: Azithromycin (Zithromax) 500 mg PO DAILY [facility] Stop: 02/13/20 09:01 Last Admin: 02/10/20 08:06 Dose: 500 mg Documented by: Docusate Sodium (Colace) 100 mg PO BID [facility] Last Admin: 02/10/20 08:06 Dose: 100 mg Documented by: Furosemide (Lasix) 40 mg IV DAILY [facility] Last Admin: 02/10/20 08:05 Dose: 40 mg Documented by: Hydroxyurea (Hydrea) 500 mg PO [id number] [facility] Last Admin: 02/10/20 10:34 Dose: 500 mg Documented by: Iron Sucrose (Venofer) 200 mg IV ONCE ONE Stop: 02/10/20 14:53 Lisinopril (Zestril) 10 mg PO QDAY [facility] Last Admin: 02/10/20 08:06 Dose: 10 mg Documented by: Nitroglycerin (Nitrostat) 0.4 mg SL Q5M PRN PRN Reason: Chest Pain Ondansetron HCl (Zofran) 4 mg IV Q6HP PRN PRN Reason: Nausea And Vomiting Senna (Senokot) 2 tab PO HS [facility] Last Admin: 02/09/20 20:29 Dose: 2 tab Documented by: Sodium Chloride (Saline Flush) 10 ml IV Q8 [facility] Last Admin: 02/10/20 06:16 Dose: Not Given Documented by: Vitamin B Complex (Vitamin B Complex) 1 cap PO DAILY [facility] Last Admin: 02/10/20 08:06 Dose: 1 cap Documented by: ABG Interpretation ABG results: 02/08/20 03:45 ABG Methemoglobin 0.3 L VBG pH 7.35 VBG pCO2 46.9 VBG pO2 132 H VBG HCO3 25.1 VBG Total CO2 26.6 VBG O2 Saturation 90.8 H VBG Base Excess -0.6 A/P Assessment and plan (1) Fever with leukocytosis and leukocyte count greater than or equal to 20,000: Status: Acute Comment: blood cultures x 2 on admission and covid negative. intermittently using her home 2lpm O2 repeat CXR shows resolution of pulm edema but persistent LLL effusion The procalcitonin markedly elevated at 7.0 improved wbc normalized on its own. was started on Azithro pending clinical co yvonne egan concerned the Port could be infected. will obtain 2 sets blood cultures one from port if possible. port is flushing but not drawing. based on file appears Cavoatrial junction and ok. recheck procalcitonin and troponin. Check ESR, TSH, cortisol cbc and bmp (2) Aortic stenosis: Status: Acute Comment: pt was being managed carefully to prevent fluid overload but still with dyspnea this morning resolved with diuresis. pt with progressive medical decline and POA directs DNR. spke with son and have family meeting with son and daughter una (POA) tomorrow. 11am symptomatic despite being TBW depleted and has recurring pulmonary edema. will treat anemia and possible adrenal insufficiency and continue fluid management. 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 cant exclude completely infection but xray with bilateral findings and left pleural effusion more consistent with CHF diuresed remove peterson. (6) Lung nodule: Status: Acute Comment: 18mm stellate in RUL suspicious for cancer. (7) Iron deficiency anemia: Status: Acute Comment: son says Dr. Steiner diagnosed iron deficiency anemia and please proceed with iron infusion. Time Spent With Patient Time: Total time spent is greater than 50% in coordination of care (as documented) at patient's floor/unit and/or counseling patient: 50 min due to aortic stenosis and resp distress plus fever and elevated procalcitonin suspicious for port infection will make inpatient. treat with steroids empiricially pending the cortisol result and replace iron sucrose IV
[2020-02-10] MEDS: HYDROCORTISONE SOD SUCC 100 MG VIAL IV SCH ×2 (15:35→21:56)
[2020-02-10 16:29] LABS: Basophils # (Auto) 0.07 K/mcL (0.00-0.30); Basophils % (Auto) 0.4 % (0.0-2.0); Eosinophils # (Auto) 0.01 K/mcL (0.00-0.70); Eosinophils % (Auto) 0.1 % (0.0-7.0); Granulocytes % (Auto) 90.6 % (38.0-78.0); Hematocrit 37.2 % (34.1-44.9); Hemoglobin 11.1 g/dL (11.2-15.7); Lymphocytes # (Auto) 0.33 K/mcL (1.50-4.80); Lymphocytes % (Auto) 2.1 % (15.5-49.0); Mean Cell Volume 97.4 fL (80.0-100.0); Mean Corpuscular HGB Conc 29.8 g/dL (31.0-36.0); Monocytes # (Auto) 1.08 K/mcL (0.10-0.90); Monocytes % (Auto) 6.8 % (1.0-12.0); Platelet Count 408 K/mcL (140-440); RBC 3.82 M/mcL (3.59-5.38); Red Cell Distribution Width 16.6 % (11.5-14.5)
[2020-02-10 17:01] LABS: Calcium 9.4 mg/dl (8.6-10.4); Carbon Dioxide 30 mmol/L (22-30); Glomerular Filtration Rate 57; Glucose 90 mg/dL (70-105); Thyroid Stimulating Hormone 2.34 uIU/ml (0.27-5.01)
[2020-02-10 17:16] LABS: Blood Urea Nitrogen 19 mg/dl (8-23); Chloride 90 mmol/L (96-108)
[2020-02-10] MEDS ORDERED: HYDROCORTISONE SOD SUCC 100 MG VIAL IV SCH ×2 (18:00)
[2020-02-10 18:59] LABS: Erythrocyte Sedimentation Rate 77 mm/hr (0-20)
[2020-02-10] MEDS: SENNOSIDES 1 TABLET PO SCH (21:49)
[2020-02-10] MEDS: IPRATROPIUM/ALBUTEROL 3 ML AMPUL.NEB NEB PRN (22:01)
[2020-02-11] MEDS: HYDROCORTISONE SOD SUCC 100 MG VIAL IV SCH ×4 (03:56→22:06)
[2020-02-11] MEDS: 0.9 % SODIUM CHLORIDE 10 ML SYRINGE IV SCH ×3 (04:02→21:15)
[2020-02-11] MEDS: AZITHROMYCIN 250 MG TABLET PO SCH (08:14)
[2020-02-11] MEDS: FUROSEMIDE 40 MG/4 ML VIAL IV SCH (08:14)
[2020-02-11] MEDS: VITAMIN B COMPLEX 1 CAPSULE PO SCH (08:14)
[2020-02-11] MEDS: DOCUSATE SODIUM 100 MG CAPSULE PO SCH ×2 (08:14→21:13)
[2020-02-11] MEDS: LISINOPRIL 10 MG TABLET PO SCH (08:14)
--- NOTE | 2020-02-11 16:33 | Internal Med Progress Note ---
SUBJECTIVE Subjective Patient information: Note initiated : 02/11/20 at 4:29 pm Service Date, if different from initiated Date: [] Patient: Roseann Adamson 89 y/o F admitted on 02/08/20 for SOB . Chief Complaint: no complaint pt cant recall her resp distress episode son Jett and daughter/POA Una are present for meeting and we met with [place] discharge planning Pt with intermittent fever and a non drawing right side port. blood cultures negative peripherally Constitutional Vitals: Vital Signs Temp Pulse Resp BP Pulse Ox 97.9 F 65 16 100/60 96 02/11/20 12:00 02/11/20 12:00 02/11/20 12:00 02/11/20 12:00 02/11/20 12:00 Period Temp Pulse Resp BP Sys/Cervantes Pulse Ox Last 24 Hr 97 F-98.5 F 53-68 14-20 100-154/60-75 94-98 Intake and Output 02/11/20 02/11/20 02/11/20 05:59 13:59 21:59 Intake Total 240 360 240 Output Total 450 Balance -210 360 240 GEn WD thin cachectic WF NAD CV RRR 4/6 THEO RUSB to chest lungs decrease breath sound left base. abd soft right chest port non tender and no fluctuance. Skin warm and dry Intake & Output: Intake & Output 02/11/20 02/11/20 02/11/20 05:59 13:59 21:59 Intake Total 240 360 240 Output Total 450 Balance -210 360 240 Intake: Oral 240 360 240 Output: Void Amount 450 Other: Meal Breakfast Lunch Percent of Meal Consumed 75% 50% Feeding Ability Assist with Tray Set Up Independent Urine Appearance Clear Urine Color Bright Yellow Pale Straw Urine Odor Normal Normal Stool Size Moderate Stool Color Brown Stool Consistency Formed # Voids 2 OBJ DATA Labs CBC & Chem 7: 02/10/20 15:35 02/10/20 15:35 Labs: Abnormal Lab Results 02/10/20 02/10/20 02/09/20 15:35 15:35 05:14 WBC 16.0 H RBC Hgb 11.1 L Hct MCHC 29.8 L RDW 16.6 H MPV 11.0 H Gran % 90.6 H Lymph % (Auto) 2.1 L Gran # 14.49 H Lymph # (Auto) 0.33 L [place] # (Auto) 1.08 H ESR 77 H Potassium 3.1 L Chloride 90 L BUN 25 H Vitamin B12 1338 H 02/09/20 05:14 WBC RBC 2.62 L Hgb 7.6 L Hct 26.2 L MCHC 29.0 L RDW 16.8 H MPV 10.6 H Gran % 87.2 H Lymph % (Auto) 3.7 L Gran # 8.58 H Lymph # (Auto) 0.36 L [place] # (Auto) ESR Potassium Chloride BUN Vitamin B12 Meds: Medications Acetaminophen (Tylenol) 650 mg PO Q6HP PRN; Protocol PRN Reason: Per Pain Protocol/Fever > 101 Albuterol Sulfate (Ventolin) 2 puff INH Q6HP PRN PRN Reason: shortness of breath or wheezin Albuterol/Ipratropium (Duoneb) 3 ml NEB Q4HP PRN PRN Reason: shortness of breath or wheezin Last Admin: 02/10/20 22:01 Dose: 3 ml Documented by: Azithromycin (Zithromax) 500 mg PO DAILY [facility] Stop: 02/13/20 09:01 Last Admin: 02/11/20 08:14 Dose: 500 mg Documented by: Docusate Sodium (Colace) 100 mg PO BID [facility] Last Admin: 02/11/20 08:14 Dose: 100 mg Documented by: Furosemide (Lasix) 40 mg IV DAILY [facility] Last Admin: 02/11/20 08:14 Dose: 40 mg Documented by: Hydrocortisone Sodium Succinate (Solu-Cortef) 25 mg IV Q6H [facility] Last Admin: 02/11/20 15:54 Dose: 25 mg Documented by: Hydroxyurea (Hydrea) 500 mg PO MoTuWeThFrSa@0900 [facility] Last Admin: 02/10/20 10:34 Dose: 500 mg Documented by: Lisinopril (Zestril) 10 mg PO QDAY [facility] Last Admin: 02/11/20 08:14 Dose: 10 mg Documented by: Nitroglycerin (Nitrostat) 0.4 mg SL Q5M PRN PRN Reason: Chest Pain Ondansetron HCl (Zofran) 4 mg IV Q6HP PRN PRN Reason: Nausea And Vomiting Senna (Senokot) 2 tab PO HS [facility] Last Admin: 08/22/20 21:49 Dose: 2 tab Documented by: Sodium Chloride (Saline Flush) 10 ml IV Q8 [facility] Last Admin: 02/11/20 13:15 Dose: 10 ml Documented by: Vitamin B Complex (Vitamin B Complex) 1 cap PO DAILY [facility] Last Admin: 02/11/20 08:14 Dose: 1 cap Documented by: ABG Interpretation ABG results: 02/08/20 03:45 ABG Methemoglobin 0.3 L VBG pH 7.35 VBG pCO2 46.9 VBG pO2 132 H VBG HCO3 25.1 VBG Total CO2 26.6 VBG O2 Saturation 90.8 H VBG Base Excess -0.6 A/P Assessment and plan (1) Fever with leukocytosis and leukocyte count greater than or equal to 20,000: Status: Acute Comment: blood cultures x 2 on admission and covid negative. intermittently using her home 2lpm O2 repeat CXR shows resolution of pulm edema but persistent LLL effusion The procalcitonin markedly elevated at 7.0 improved wbc normalized on its own. was started on Azithro pending clinical course im concerned the Port could be infected. will obtain 2 sets blood cultures one from port if possible. port is flushing but not drawing. based on file appears Cavoatrial junction and ok. recheck procalcitonin and troponin. Check ESR, TSH, cortisol cbc and bmp procalcitonin and esr elevated concerning for line infection but no positive cultures family discussion held and they want to proceed with hospice. (2) Iron deficiency anemia: Status: Acute Comment: son Jett says Dr. Steiner diagnosed iron deficiency anemia and please proceed with iron infusion. Iron infusion given 200mg venofer 02/10/20 (3) Aortic stenosis: Status: Acute Comment: pt was being managed carefully to prevent fluid overload but still with dyspnea this morning resolved with diuresis. pt with progressive medical decline and POA directs DNR. spke with son and have family meeting with son and daughter una (POA) tomorrow. 11am symptomatic despite being TBW depleted and has recurring pulmonary edema. will treat anemia and possible adrenal insufficiency and continue fluid management. cortisol normal Time Spent With Patient Time: Total time spent is greater than 50% in coordination of care (as documented) at patient's floor/unit and/or counseling patient:
[2020-02-11] MEDS: SENNOSIDES 1 TABLET PO SCH (21:13)
[2020-02-11] MEDS: IPRATROPIUM/ALBUTEROL 3 ML AMPUL.NEB NEB PRN (22:32)
[2020-02-12] MEDS: HYDROCORTISONE SOD SUCC 100 MG VIAL IV SCH ×2 (04:25→10:02)
[2020-02-12] MEDS: 0.9 % SODIUM CHLORIDE 10 ML SYRINGE IV SCH ×2 (04:30→10:02)
[2020-02-12] MEDS: LISINOPRIL 10 MG TABLET PO SCH (08:20)
[2020-02-12] MEDS: VITAMIN B COMPLEX 1 CAPSULE PO SCH (08:20)
[2020-02-12] MEDS: FUROSEMIDE 40 MG/4 ML VIAL IV SCH (08:20)
[2020-02-12] MEDS: AZITHROMYCIN 250 MG TABLET PO SCH (08:20)
[2020-02-12] MEDS: DOCUSATE SODIUM 100 MG CAPSULE PO SCH (08:20)
[2020-02-12] MEDS: HYDROXYUREA 500 MG CAPSULE PO SCH (08:22)
[2020-02-12] MEDS ORDERED: HEPARIN SODIUM,PORCINE/PF 500 UNIT/5 ML SYRINGE IV ONE ×2 (12:42→13:02)
--- NOTE | 2020-02-12 12:45 | Discharge Summary ---
Discharge Provider Provider Patient information: Note initiated : 02/12/20 at 12:41 pm Service Date, if different from initiated Date: [] Patient: Roseann Adamson 89 y/o F admitted on 02/08/20 for SOB . Chief Complaint: [] Date of admission: 02/08/20 10:54 Discharge date: 02/12/20 Primary care physician: Manohar Steiner Consults: 02/08/20 Consult to Physician [CONS] Stat Comment: Consulting Provider: Kris Matthews Reason For Exam: Physician to Consult Discharge Meds Discharge Medications Home Medications hydroxyurea 500 mg capsule 500 mg PO DAILY cap 02/28/15 [History Confirmed 02/08/20 Last Taken 12/17/16 500 MG.] lisinopril 10 mg tablet 10 mg PO QDAY #90 tab 01/31/19 [Rx Confirmed 02/08/20 Last Taken Unknown] albuterol sulfate 90 mcg/actuation aerosol inhaler 2 puff INHALATION Q6H PRN #18 g 11/27/19 [Rx Confirmed 02/08/20 Last Taken Unknown] ipratropium 0.5 mg-albuterol 3 mg (2.5 mg base)/3 mL nebulization soln 3 ml INHALATION Q4H PRN #90 ml 11/29/19 [Rx Confirmed 02/08/20 Last Taken Unknown] O2 concentrator #1 ea 02/07/20 [Rx Confirmed 02/08/20 Last Taken Unknown] Walker with front basket #1 ea 02/07/20 [Rx Confirmed 02/08/20 Last Taken Unknown] B Complex 1 ml SUBLINGUAL DAILY 02/08/20 [History Confirmed 02/08/20 Last Taken Unknown] furosemide 40 mg PO QAM #30 tab 02/12/20 [Rx Last Taken Unknown] nitroglycerin 0.4 mg SUBLINGUAL Q5M PRN 30 Days #30 tab 02/12/20 [Rx Last Taken Unknown] COURSE Hospital Course Hospital course: History of present illness: Ms. Adamson is a 89 year old F presented to [facility] this morning and had dyspnea. It lasted for 30 mins and she was tachycardic with fever to 103. She had labored breathing and received nebulizer and O2 6l/min. + cough but no chest pain or nausea. Lives with son. no sick contacts. Pt received nebulizers at home and en route. pt had blood culture and covid test. Imaging. additional nebs given and she improved O2 down to 2lpm and hr from 130 down to 85. Due WBC 29.5 polycythemia vera history, and fever she was admitted. Of not she has and recently saw Dr. Torres for nonrheumatic and determined not a valve repair candidate due to health and dementia. Pt also JAK2 mutation positive Polycythemia Vera and take hydroxyurea. Pt has mod severe and has been somewhat symptomatic in the past. Course: The patient was diuresed, which did improve her respiratory status. However she continued to have intermittent fever in the hospital with an elevated procalcitonin and ESR. Her initially elevated white count normalized, she was treated with azithromycin for possible bronchitis. She has a right- sided Port-A-Cath, which was able to flush but did not draw. There was concern that this could represent a line infection, though peripheral blood cultures remained without growth. COVID-19 swab at admission was negative. After discussion with the patient's family (who is her power of commonwealth attorney) and Dr. Matthews, given her multiple comorbidities and inoperable aortic stenosis a decision was made to not pursue further evaluation and to switch to hospice care. The patient is being discharged to [facility], where she will be enrolled in hospice. Prior to the decision to transition to hospice, the patient did receive intravenous iron infusion on 02/09 with 200 mg of Venofer. Discharge diagnosis: Severe aortic stenosis Secondary discharge diagnosis: Polycythemia vera Fever, possible Port-A-Cath infection further evaluation deferred given goals of care Procedures: None Pertinent studies/significant findings: Chest CT: IMPRESSION: 1. Centrilobular emphysema 2. Spiculated mass in the right upper lobe. This is unchanged since 11/07/2019 but new since 2008. Continued follow-up recommended 3. Small focal infiltrate and pleural-based density in the right upper lobe is slightly worse than on 11/07/2019. Continued follow-up recommended 4. Small to moderate left pleural effusion. This is new since 11/07/2019 5. Nonspecific mediastinal adenopathy 6. Severe calcified atherosclerotic disease Head CT: IMPRESSION: 1. No acute intracranial hemorrhage 2. 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 Low density in the left parieto-occipital region consistent with subacute infarction CXR 02/07: IMPRESSION: 1. Diffuse interstitial infiltrates may represent interstitial pulmonary edema 2. Left lower lobe volume loss or consolidation. Small left pleural effusion CXR 02/09 IMPRESSION: 1. Improved interstitial pulmonary edema 2. Bilateral effusions, left larger than right 3. Persistent left lower lobe pulmonary parenchymal density consistent with volume loss or pneumonia Complications: None Time Spent with Patient Time attestation: Total time spent providing and/or coordinating discharge services: 35 min EXAM Constitutional Vitals: Temp Pulse Resp BP Pulse Ox 98.1 F 63 18 130/62 92 02/12/20 12:00 02/12/20 12:00 02/12/20 12:00 02/12/20 12:00 02/12/20 12:00 General: Finishing lunch, no acute distress Chest: Diminished at bases bilaterally, few faint crackles. Right-sided Port-A-Cath without surrounding erythema Cardiovascular: Regular, 2/6 systolic murmur. Abdomen: Soft, nontender Musculoskeletal: Significant loss of muscle mass throughout Neuro: Alert, oriented to self, hard of hearing, generally weak Discharge Data Data Completed and Pending Labs on day of discharge: Preliminary micro results at discharge 02/08/20 03:45 Blood Culture - Preliminary Blood 02/08/20 02:50 Blood Culture - Preliminary Blood 02/10/20 15:35 Blood Culture - Preliminary Blood Discharge Plan Patient/Caregiver Discharge Instructions Activity: resume usual activities as tolerated Diet: Regular Diet Prescriptions: New nitroglycerin 0.4 mg Tablet, Sublingual 0.4 mg sublingual Q5M PRN (Reason: Chest Pain) 30 Days Qty: 30 RF: 0 furosemide 40 mg tablet 40 mg PO QAM Qty: 30 RF: 0 Continued lisinopril 10 mg tablet 10 mg PO QDAY Qty: 90 RF: 3 ipratropium-albuterol 0.5 mg-3 mg(2.5 mg base)/3 mL solution for nebulization 3 ml INHALATION Q4H PRN (Reason: shortness of breath or wheezing) Qty: 90 RF: 0 (DME) Walker with front basket Qty: 1 RF: 0 (DME) O2 concentrator Qty: 1 RF: 0 hydroxyurea 500 mg capsule 500 mg PO DAILY RF: 0 albuterol sulfate [Ventolin HFA] 90 mcg/actuation HFA aerosol inhaler 2 puff INHALATION Q6H PRN (Reason: shortness of breath or wheezing) Qty: 18 RF: 0 B Complex 1.7-20-2-1.2 mg/mL Liquid 1 ml SUBLINGUAL DAILY RF: 0 Follow Up Plan Follow up with: Manohar Steiner DO [Primary Care Provider] - 02/15/20 (Follow up with Dr. Steiner by virtual visit on 02/14. The office will set-up the appointment.) Patient Disposition: Hospice - Medical Facility Rehab Potential: Critical I certify that the patient requires SNF services: Yes Overall status at discharge: patient is not back to baseline Discharge Orders: Discharge Order (Routine); Ordered 02/12/20 Ordered By: Judy Steven Interventions Interventions: Discharge Assessment Last Done: 02/12/20 12:58 Discharge Belongings Last Done: 02/12/20 12:56 IV at Discharge Last Done: 02/12/20 12:54 Discharge Vaccines Last Done: 02/12/20 12:56
== END 2020-02-12 13:35 | disposition hospice, inpatient (51) | DRG 307 ==
LOC: ED 02:22 → MEDSUR 10:54
PROVIDERS: ADMIT Internal Medicine; ATTEND Internal Medicine